=== PATIENT | male | born 1945 | race Caucasian/White ===

== ENCOUNTER 2016-05-10 18:33 | Inpatient (IN) | payer MEDICARE, OTHER ==
[~2016-05-10] VITALS: Ht 180.3 cm; Wt 70.4 kg
[~2016-05-10 18:33] MED LIST: ATOR10TA60 PO; DIVA250T PO; DONE10TA34 PO; DULO30CA2 PO; IBUP-1027 PO; LISI10TA2 PO; LORA1TAB PO; MELA3TAB PO; MEMA10TA PO; OMERPRAZOLE PO; QUET50TA5 PO; TRAZ50TA15 PO
--- NOTE | 2016-05-10 19:42 | PHYS DOC ---
Past Medical History Past Medical History: Anxiety, Dementia, Depression, High Cholesterol, Hypertension Additional Past Medical Histor: Lewy body dementia, PARKINSONS Past Surgical History: Other Additional Past Surgical Histo: L. FOOT Alcohol Use: Rarely Drug Use: None Adult General Chief Complaint Chief Complaint: SYNCOPE HPI HPI Patient is a 70 year old female who presents after apparent syncopal episode. Patient was at the [facility] when he vomited and then lost consciousness. He shortly thereafter regained consciousness. Patient reports he is feeling fine now. He is demented, however his is at bedside says he is acting his baseline. No other acute complaints. Review of Systems Review of Systems Constitutional: Syncope. Denies fever or chills Eyes: Denies change in visual acuity or eye pain HENT: Denies nasal congestion or sore throat Respiratory: Denies cough or shortness of breath Cardiovascular: Denies chest pain GI: Emesis at [facility]. Denies abdominal pain, nausea,bloody stools or diarrhea : Denies dysuria or hematuria Musculoskeletal: Denies back pain or joint pain Integument: Denies rash or skin lesions Neurologic: Denies headache, focal weakness or sensory changes Current Medications Current Medications Current Medications Medications (Trade) Dose Ordered Sig/Latosha Start Time Stop Time Status Last Admin Dose Admin Ondansetron HCl (Zofran) 4 mg 1X ONCE 05/10/16 19:45 05/10/16 19:46 DC 05/10/16 20:13 4 MG Sodium Chloride (Iv Sodium Chloride 0.9% 1000ml Bag) 1,000 ml @ 1,000 mls/hr 1X ONCE 05/10/16 19:45 05/10/16 20:44 DC 05/10/16 20:12 1,000 MLS/HR Allergies Allergies Allergies Coded Allergies Type Severity Reaction Last Updated Verified No Known Drug Allergies 01/14/16 No Physical Exam Physical Exam Constitutional: Well developed, well nourished, no acute distress, non-toxic appearance HENT: Normocephalic, atraumatic, bilateral external ears normal Eyes: PERRL, EOMI, conjunctiva normal, no discharge Neck: Normal range of motion, no stridor Cardiovascular: Heart rate normal, regular rhythm, no murmur Lungs & Thorax: Coarse breath sounds on R Abdomen: Bowel sounds normal, soft, non-distended, no TTP Skin: Warm, dry, no erythema, no rash Extremities: No obvious deformity, no edema Neurologic: Alert and oriented to person and place, stuttering, no gross deficits noted Current Patient Data Vital Signs Vital Signs Date Time Temp Pulse Resp B/P Pulse Ox O2 Delivery O2 Flow Rate FiO2 05/10/16 20:30 72 20 103/60 99 Room Air 05/10/16 18:33 97.3 97.3 Lab Values Laboratory Tests Test 05/10/16 18:50 05/10/16 20:30 White Blood Count 8.0x10^3/uL (4.0-11.0) Red Blood Count 4.59x10^6/uL (4.30-5.70) Hemoglobin 14.7g/dL (13.0-17.5) Hematocrit 45.1% (39.0-53.0) Mean Corpuscular Volume 98fL (79-100) Mean Corpuscular Hemoglobin 32pg (25-35) Mean Corpuscular Hemoglobin Concent 33g/dL (31-37) Red Cell Distribution Width 13.5% (11.5-14.5) Platelet Count 258x10^3/uL (140-400) Neutrophils (%) (Auto) 47% (31-73) Lymphocytes (%) (Auto) 44% (24-48) Monocytes (%) (Auto) 7% (0-9) Eosinophils (%) (Auto) 1% (0-3) Basophils (%) (Auto) 1% (0-3) Neutrophils # (Auto) 3.8x10^3uL (1.8-7.7) Lymphocytes # (Auto) 3.5x10^3/uL (1.0-4.8) Monocytes # (Auto) 0.6x10^3/uL (0.0-1.1) Eosinophils # (Auto) 0.1x10^3/uL (0.0-0.7) Basophils # (Auto) 0.1x10^3/uL (0.0-0.2) Sodium Level 146mmol/L (136-145) H Potassium Level 4.0mmol/L (3.5-5.1) Chloride Level 108mmol/L (98-107) H Carbon Dioxide Level 25mmol/L (21-32) Anion Gap 13 (6-14) Blood Urea Nitrogen 35mg/dL (8-26) H Creatinine 1.4mg/dL (0.7-1.3) H Estimated GFR (Cockcroft-Gault) 50.2 BUN/Creatinine Ratio 25 (6-20) H Glucose Level 123mg/dL (70-99) H Calcium Level 9.2mg/dL (8.5-10.1) Total Bilirubin 0.9mg/dL (0.2-1.0) Aspartate Amino Transferase (AST) 23U/L (15-37) Alanine Aminotransferase (ALT) 30U/L (16-63) Alkaline Phosphatase 44U/L (46-116) L Troponin I Quantitative < 0.017ng/mL (0.000-0.055) Total Protein 7.0g/dL (6.4-8.2) Albumin 3.5g/dL (3.4-5.0) Albumin/Globulin Ratio 1.0 (1.0-1.7) Lipase 270U/L (73-393) Urine Collection Type Unknown Urine Color Maureen Urine Clarity Clear Urine pH 7.0 Urine Specific [place] 1.015 Urine Protein Negativemg/dL (NEG-TRACE) Urine Glucose (UA) Negativemg/dL (NEG) Urine Ketones (Stick) 15mg/dL (NEG) Urine Blood Negative (NEG) Urine Nitrite Negative (NEG) Urine Bilirubin Small (NEG) Urine Urobilinogen Dipstick 4.0mg/dL (0.2 mg/dL) Urine Leukocyte Esterase Negative (NEG) Urine RBC Occ/HPF (0-2) Urine WBC 5-10/HPF (0-4) Urine Squamous Epithelial Cells Few/LPF Urine Bacteria 0/HPF (0-FEW) Urine Hyaline Casts Few/HPF Urine Mucus Slight/LPF Laboratory Tests 05/10/16 18:50 Laboratory Tests 05/10/16 18:50 EKG EKG EKG (my read): sinus rhythm, rate 69, normal axis, QTc 484ms, no acute ischemic changes Radiology/Procedures Radiology/Procedures CXR (my read): No acute abnormality Course & Med Decision Making Course & Med Decision Making Pertinent Labs and Imaging studies reviewed. (See chart for details) Patient is 70 -year-old male who presents after apparent syncopal episode. Unclear etiology. No concerning findings on physical exam. Will obtain EKG, chest x-ray, labs to evaluate. Fluid bolus ordered. Labs notable for a few electrolyte abnormalities. Discussed results with patient and . Discussed with Dr. James, will admit under his care for further evaluation and treatment. Dragon Disclaimer Dragon Disclaimer This electronic medical record was generated, in whole or in part, using a voice recognition dictation system. Departure Departure Impression: Primary Impression: Syncope Disposition: 09 ADMITTED INPATIENT Admitting Physician: Catrina James Condition: GUARDED Referrals: FROILAN CASTILLO MD (PCP) CHRISTA MENDES MD May 10, 2016 19:42
[2016-05-10] MEDS ORDERED: IV NORMAL SALINE 1000ML BAG 1,000 ML IV ONE (19:45)
[2016-05-10] MEDS ORDERED: ONDANSETRON PF 4 MG/2 ML VIAL. IV ONE (19:45)
[2016-05-10 19:52] LABS: BASO # 0.1 x10^3/uL (0.0-0.2); BASO % 1 % (0-3); EOS % 1 % (0-3); HEMATOCRIT 45.1 % (39.0-53.0); HEMOGLOBIN 14.7 g/dL (13.0-17.5); LYMPH # 3.5 x10^3/uL (1.0-4.8); LYMPH % 44 % (24-48); MEAN CORPUSCULAR HEMOGLOBIN 32 pg (25-35); MEAN CORPUSCULAR HGB CONC 33 g/dL (31-37); MEAN CORPUSCULAR VOLUME 98 fL (79-100); MONO % 7 % (0-9); NEUT % 47 % (31-73); PLATELET COUNT 258 x10^3/uL (140-400); RED BLOOD COUNT 4.59 x10^6/uL (4.30-5.70); RED CELL DISTRIBUTION WIDTH 13.5 % (11.5-14.5)
--- NOTE | 2016-05-10 19:54 | EKG ---
[facility] [address] [place] [address] Test Date: 2016-05-10 Test Time: 19:52:29 Pat Name: EFRAÍN ORTIZ Department: Room: Gender: M Entry Specialist: MA : [id number] Requested By: CHRISTA MENDES Order Number: [id number] Reading MD: Speedy Skinner Measurements Intervals [place] Rate: 69 P: 27 OK: 188 QRS: 70 QRSD: 86 T: 65 QT: 450 QTc: 484 Interpretive Statements SINUS RHYTHM NON-SPECIFIC ST/T CHANGES PROLONGED QT Electronically Signed On 05-16-2016 10:02:30 EYEGLASS LENS GENERATOR by Speedy Skinner
[2016-05-10 19:59] LABS: CALCIUM 9.2 mg/dL (8.5-10.1); CREATININE 1.4 mg/dL (0.7-1.3); GFR 50.2
[2016-05-10 20:05] LABS: ALBUMIN 3.5 g/dL (3.4-5.0); TOTAL BILIRUBIN 0.9 mg/dL (0.2-1.0)
[2016-05-10 20:43] LABS: BILIRUBIN,URINE SMALL (NEG); GLUCOSE,URINE NEGATIVE (NEG); NITRITE,URINE NEGATIVE (NEG)
[2016-05-10 20:48] LABS: PROTEIN,URINE NEGATIVE (NEG-TRACE)
[2016-05-10 20:49] LABS: BACTERIA,URINE 0 /HPF (0-FEW); RBC,URINE OCC /HPF (0-2); SQUAMOUS EPITHELIAL CELL,UR FEW /LPF
[2016-05-10] MEDS ORDERED: ONDANSETRON PF 4 MG/2 ML VIAL. IV PRN (21:00)
[2016-05-10] MEDS ORDERED: ACETAMINOPHEN 325 MG TABLET. PO PRN (21:00)
[2016-05-10] MEDS ORDERED: MORPHINE SULFATE 2 MG/ML DISP.SYRIN. IV PRN (21:00)
--- NOTE | 2016-05-10 21:36 | PDOC1 ---
History and Physical Date of Admission Date of Admission DATE: 05/10/16 TIME: 21:35 Identification/Chief Complaint Chief Complaint syncope, poorly responsive for a short time Source Source: Caregiver, Chart review History of Present Illness History of Present Illness Patient in correction for dementia. Reported likely Lewy Body dementia. TOnight at dinner, he was suddenly lethargic and poorly responsive, and unable to be aroused. In the ER, he is responsive and trying to communicate but has marked word finding difficulty and slow to respond. Past Medical History CENTRAL NERVOUS SYSTEM: Dementia, Other (parkinsons) Psych: Depression Past Surgical History Past Surgical History: No pertinent history Family History Family History: Family History Unknown Social History Smoke: No ALCOHOL: none Current Problem List Problem List Problems Medical Problems: (1) Syncope Status: Acute Problems: Current Medications Current Medications Current Medications Sodium Chloride (Iv Sodium Chloride 0.9% 1000ml Bag) 1,000 ml @ 1,000 mls/hr 1X ONCE IV Last administered on 05/10/16 20:12; Start 05/10/16 at 19:45; Stop 05/10/16 at 20:44; Status DC Ondansetron HCl (Zofran) 4 mg 1X ONCE IV Last administered on 05/10/16 20:13 ; Start 05/10/16 at 19:45; Stop 05/10/16 at 19:46; Status DC Ondansetron HCl (Zofran) 4 mg PRN Q8HRS PRN IV NAUSEA/VOMITING; Start 05/10/16 at 21:00; Stop 05/11/16 at 20:59 Morphine Sulfate 2 mg PRN Q2HR PRN IV PAIN; Start 05/10/16 at 21:00; Stop 05/11 at 20:59 Acetaminophen (Tylenol) 650 mg PRN Q4HRS PRN PO FEVER; Start 05/10/16 at 21:00 ; Stop 05/11/16 at 20:59 Active Scripts Active Reported Lorazepam 1 Mg Tablet 1 Mg PO DAILY Lisinopril 10 Mg Tablet 1 Tab PO DAILY Namenda (Memantine Hcl) 10 Mg Tablet 10 Mg PO DAILY Atorvastatin Calcium 10 Mg Tablet 10 Mg PO HS Aricept (Donepezil Hcl) 10 Mg Tablet 2.5 Tab PO QHS Trazodone Hcl 50 Mg Tablet 1.5 Tab PO QHS Melatonin 3 Mg Tablet 1 Tab PO QHS Depakote Er (Divalproex Sodium) 250 Mg Tab.er.24h 0.5 Tab PO BID Cymbalta (Duloxetine Hcl) 30 Mg Capsule. 1 Cap PO HS [omerprazole] 20 Mg PO PRN Allergies Allergies: Coded Allergies: No Known Drug Allergies (Unverified , 01/14/16) ROS Review of System unable to complete, demented, hard for him to answer questions Physical Exam General: Alert, Cooperative, No acute distress, Other (not oriented, difficulty with speech, ) HEENT: PERRLA, EOMI, Mucous membr. moist/pink Lungs: Clear to auscultation, Normal air movement Abdomen: Normal bowel sounds, Soft Extremities: No clubbing, No edema Neuro: Normal speech, Normal tone, Sensation intact, Cranial nerves 3-12 NL, Other (good hand str. ) Psych/Mental Status: Other (flat, ) Vitals Vitals Vital Signs Date Time Temp Pulse Resp B/P Pulse Ox O2 Delivery O2 Flow Rate FiO2 05/10/16 20:30 72 20 103/60 99 Room Air 05/10/16 18:33 97.3 97.3 Labs Labs Laboratory Tests Test 05/10/16 18:50 05/10/16 20:30 White Blood Count 8.0x10^3/uL (4.0-11.0) Red Blood Count 4.59x10^6/uL (4.30-5.70) Hemoglobin 14.7g/dL (13.0-17.5) Hematocrit 45.1% (39.0-53.0) Mean Corpuscular Volume 98fL (79-100) Mean Corpuscular Hemoglobin 32pg (25-35) Mean Corpuscular Hemoglobin Concent 33g/dL (31-37) Red Cell Distribution Width 13.5% (11.5-14.5) Platelet Count 258x10^3/uL (140-400) Neutrophils (%) (Auto) 47% (31-73) Lymphocytes (%) (Auto) 44% (24-48) Monocytes (%) (Auto) 7% (0-9) Eosinophils (%) (Auto) 1% (0-3) Basophils (%) (Auto) 1% (0-3) Neutrophils # (Auto) 3.8x10^3uL (1.8-7.7) Lymphocytes # (Auto) 3.5x10^3/uL (1.0-4.8) Monocytes # (Auto) 0.6x10^3/uL (0.0-1.1) Eosinophils # (Auto) 0.1x10^3/uL (0.0-0.7) Basophils # (Auto) 0.1x10^3/uL (0.0-0.2) Sodium Level 146mmol/L (136-145) Potassium Level 4.0mmol/L (3.5-5.1) Chloride Level 108mmol/L (98-107) Carbon Dioxide Level 25mmol/L (21-32) Anion Gap 13 (6-14) Blood Urea Nitrogen 35mg/dL (8-26) Creatinine 1.4mg/dL (0.7-1.3) Estimated GFR (Cockcroft-Gault) 50.2 BUN/Creatinine Ratio 25 (6-20) Glucose Level 123mg/dL (70-99) Calcium Level 9.2mg/dL (8.5-10.1) Total Bilirubin 0.9mg/dL (0.2-1.0) Aspartate Amino Transf (AST/SGOT) 23U/L (15-37) Alanine Aminotransferase (ALT/SGPT) 30U/L (16-63) Alkaline Phosphatase 44U/L (46-116) Troponin I Quantitative < 0.017ng/mL (0.000-0.055) Total Protein 7.0g/dL (6.4-8.2) Albumin 3.5g/dL (3.4-5.0) Albumin/Globulin Ratio 1.0 (1.0-1.7) Lipase 270U/L (73-393) Urine Collection Type Unknown Urine Color Maureen Urine Clarity Clear Urine pH 7.0 Urine Specific [place] 1.015 Urine Protein Negativemg/dL (NEG-TRACE) Urine Glucose (UA) Negativemg/dL (NEG) Urine Ketones (Stick) 15mg/dL (NEG) Urine Blood Negative (NEG) Urine Nitrite Negative (NEG) Urine Bilirubin Small (NEG) Urine Urobilinogen Dipstick 4.0mg/dL (0.2 mg/dL) Urine Leukocyte Esterase Negative (NEG) Urine RBC Occ/HPF (0-2) Urine WBC 5-10/HPF (0-4) Urine Squamous Epithelial Cells Few/LPF Urine Bacteria 0/HPF (0-FEW) Urine Hyaline Casts Few/HPF Urine Mucus Slight/LPF Laboratory Tests Test 05/10/16 18:50 05/10/16 20:30 White Blood Count 8.0x10^3/uL (4.0-11.0) Red Blood Count 4.59x10^6/uL (4.30-5.70) Hemoglobin 14.7g/dL (13.0-17.5) Hematocrit 45.1% (39.0-53.0) Mean Corpuscular Volume 98fL (79-100) Mean Corpuscular Hemoglobin 32pg (25-35) Mean Corpuscular Hemoglobin Concent 33g/dL (31-37) Red Cell Distribution Width 13.5% (11.5-14.5) Platelet Count 258x10^3/uL (140-400) Neutrophils (%) (Auto) 47% (31-73) Lymphocytes (%) (Auto) 44% (24-48) Monocytes (%) (Auto) 7% (0-9) Eosinophils (%) (Auto) 1% (0-3) Basophils (%) (Auto) 1% (0-3) Neutrophils # (Auto) 3.8x10^3uL (1.8-7.7) Lymphocytes # (Auto) 3.5x10^3/uL (1.0-4.8) Monocytes # (Auto) 0.6x10^3/uL (0.0-1.1) Eosinophils # (Auto) 0.1x10^3/uL (0.0-0.7) Basophils # (Auto) 0.1x10^3/uL (0.0-0.2) Sodium Level 146mmol/L (136-145) Potassium Level 4.0mmol/L (3.5-5.1) Chloride Level 108mmol/L (98-107) Carbon Dioxide Level 25mmol/L (21-32) Anion Gap 13 (6-14) Blood Urea Nitrogen 35mg/dL (8-26) Creatinine 1.4mg/dL (0.7-1.3) Estimated GFR (Cockcroft-Gault) 50.2 BUN/Creatinine Ratio 25 (6-20) Glucose Level 123mg/dL (70-99) Calcium Level 9.2mg/dL (8.5-10.1) Total Bilirubin 0.9mg/dL (0.2-1.0) Aspartate Amino Transf (AST/SGOT) 23U/L (15-37) Alanine Aminotransferase (ALT/SGPT) 30U/L (16-63) Alkaline Phosphatase 44U/L (46-116) Troponin I Quantitative < 0.017ng/mL (0.000-0.055) Total Protein 7.0g/dL (6.4-8.2) Albumin 3.5g/dL (3.4-5.0) Albumin/Globulin Ratio 1.0 (1.0-1.7) Lipase 270U/L (73-393) Urine Collection Type Unknown Urine Color Maureen Urine Clarity Clear Urine pH 7.0 Urine Specific [place] 1.015 Urine Protein Negativemg/dL (NEG-TRACE) Urine Glucose (UA) Negativemg/dL (NEG) Urine Ketones (Stick) 15mg/dL (NEG) Urine Blood Negative (NEG) Urine Nitrite Negative (NEG) Urine Bilirubin Small (NEG) Urine Urobilinogen Dipstick 4.0mg/dL (0.2 mg/dL) Urine Leukocyte Esterase Negative (NEG) Urine RBC Occ/HPF (0-2) Urine WBC 5-10/HPF (0-4) Urine Squamous Epithelial Cells Few/LPF Urine Bacteria 0/HPF (0-FEW) Urine Hyaline Casts Few/HPF Urine Mucus Slight/LPF VTE Prophylaxis Ordered VTE Prophylaxis Devices: No VTE Pharmacological Prophylaxi: Yes Assessment/Plan Assessment/Plan syncope dementia Hx of likely Lewy Body dementia depression, possible seizure admit ALLYSON KASPER MD May 10, 2016 21:36
[2016-05-10] MEDS: traZODone 50 MG TABLET. PO SCH (22:48)
[2016-05-10] MEDS: DONEPEZIL HCL 10 MG TABLET. PO SCH (22:48)
[2016-05-10] MEDS: DIVALPROEX EXTENDED RELEASE 250 MG TAB.ER.24H. PO SCH (22:48)
[2016-05-10] MEDS: DULOXETINE HCL 30 MG CAPSULE.DR. PO SCH (22:48)
[2016-05-10] MEDS: ATORVASTATIN CALCIUM 10 MG TABLET. PO SCH (22:48)
[2016-05-10 23:00] VITALS: BP 125/85
[2016-05-11 03:00] VITALS: BP 116/50
[2016-05-11 06:31] LABS: BASO % 0 % (0-3); EOS % 2 % (0-3); HEMATOCRIT 40.9 % (39.0-53.0); HEMOGLOBIN 13.8 g/dL (13.0-17.5); LYMPH # 1.5 x10^3/uL (1.0-4.8); LYMPH % 12 % (24-48); MEAN CORPUSCULAR HEMOGLOBIN 33 pg (25-35); MEAN CORPUSCULAR HGB CONC 34 g/dL (31-37); MEAN CORPUSCULAR VOLUME 98 fL (79-100); MONO % 9 % (0-9); NEUT % 77 % (31-73); PLATELET COUNT 204 x10^3/uL (140-400); RED BLOOD COUNT 4.16 x10^6/uL (4.30-5.70); RED CELL DISTRIBUTION WIDTH 13.6 % (11.5-14.5); WHITE BLOOD COUNT 12.2 x10^3/uL (4.0-11.0)
[2016-05-11 06:54] LABS: CALCIUM 8.3 mg/dL (8.5-10.1); CREATININE 1.3 mg/dL (0.7-1.3); GFR 54.7; POTASSIUM 3.7 mmol/L (3.5-5.1)
[2016-05-11 07:00] VITALS: BP 139/92
--- NOTE | 2016-05-11 07:18 | RAD ---
EXAM: Chest, 2 views. HISTORY: Syncope. COMPARISON: 04/16/2016. FINDINGS: Frontal and lateral views of the chest are obtained. There is no infiltrate, effusion or pneumothorax. The heart is normal in size. There is hyperinflation due to inspiratory effort or emphysema. Incidental note is made of degenerative or remote posttraumatic changes involving both glenoid fossae. IMPRESSION: No acute pulmonary finding.
[2016-05-11] MEDS: LORAZEPAM 1 MG TABLET. PO SCH (08:59)
[2016-05-11] MEDS: MEMANTINE 10 MG TABLET. PO SCH (08:59)
[2016-05-11] MEDS: DIVALPROEX EXTENDED RELEASE 250 MG TAB.ER.24H. PO SCH ×2 (08:59→21:11)
[2016-05-11] MEDS: LISINOPRIL 10 MG TABLET PO SCH (09:00)
--- NOTE | 2016-05-11 12:29 | PDOC2 ---
CONSULT Date of Consult Date of Consult DATE: 05/11/16 TIME: 12:26 Reason for Consult Reason for Consult: Syncope Referring Physician Referring Physician: Jacob Identification/Chief Complaint Chief Complaint Syncope History of Present Illness Reason for Visit: Patient is a 70 year old white male with history of lewy body dementia. Admitted from ED after syncopal episode. Pt A&O x 1 and was a poor historian. at bedside. Per his report, denies any history of cardiac problems. Per , has had 4 prior similar episodes. She states that he lives in a memory care clinic and if his blood pressure gets too low, they will hold his blood pressure medication. Past Medical History Cardiovascular: HTN, Syncope CENTRAL NERVOUS SYSTEM: Dementia (Lewy Body), Other (parkinsons) Psych: Depression Past Surgical History Past Surgical History: No pertinent history Family History Family History: Family History Unknown Social History No ALCOHOL: none Current Problem List Problem List Problems Medical Problems: (1) Syncope Status: Acute Current Medications Current Medications Current Medications Sodium Chloride (Iv Sodium Chloride 0.9% 1000ml Bag) 1,000 ml @ 1,000 mls/hr 1X ONCE IV Last administered on 05/10/16 20:12; Start 05/10/16 at 19:45; Stop 05/10/16 at 20:44; Status DC Ondansetron HCl (Zofran) 4 mg 1X ONCE IV Last administered on 05/10/16 20:13 ; Start 05/10/16 at 19:45; Stop 05/10/16 at 19:46; Status DC Ondansetron HCl (Zofran) 4 mg PRN Q8HRS PRN IV NAUSEA/VOMITING; Start 05/10/16 at 21:00; Stop 05/11/16 at 20:59 Morphine Sulfate 2 mg PRN Q2HR PRN IV PAIN; Start 05/10/16 at 21:00; Stop 05/11 at 20:59 Acetaminophen (Tylenol) 650 mg PRN Q4HRS PRN PO FEVER; Start 05/10/16 at 21:00 ; Stop 05/11/16 at 20:59 Atorvastatin Calcium (Lipitor) 10 mg HS PO Last administered on 05/10/16 22:48 ; Start 05/10/16 at 22:00 Divalproex Sodium (Depakote Er) 250 mg BID PO Last administered on 05/11/16 08 :59; Start 05/10/16 at 22:00 Donepezil HCl (Aricept) 10 mg QHS PO Last administered on 05/10/16 22:48; Start 05/10/16 at 22:00 Duloxetine HCl (Cymbalta) 30 mg HS PO Last administered on 05/10/16 22:48; Start 05/10/16 at 22:00 Lisinopril (Prinivil) 10 mg DAILY PO Last administered on 05/11/16 09:00; Start 05/11/16 at 09:00 Lorazepam (Ativan) 1 mg DAILY PO Last administered on 05/11/16 08:59; Start at 09:00 Memantine (Namenda) 10 mg DAILY PO Last administered on 05/11/16 08:59; Start 05/11/16 at 09:00 Trazodone HCl (Desyrel) 50 mg QHS PO Last administered on 05/10/16 22:48; Start 05/10/16 at 22:00 Non-Formulary Medication 1 tab QHS PO ; Start 05/11/16 at 21:00; Status UNV Active Scripts Active Reported Lorazepam 1 Mg Tablet 1 Mg PO DAILY Lisinopril 10 Mg Tablet 1 Tab PO DAILY Namenda (Memantine Hcl) 10 Mg Tablet 10 Mg PO DAILY Atorvastatin Calcium 10 Mg Tablet 10 Mg PO HS Aricept (Donepezil Hcl) 10 Mg Tablet 2.5 Tab PO QHS Trazodone Hcl 50 Mg Tablet 1.5 Tab PO QHS Melatonin 3 Mg Tablet 1 Tab PO QHS Depakote Er (Divalproex Sodium) 250 Mg Tab.er.24h 0.5 Tab PO BID Cymbalta (Duloxetine Hcl) 30 Mg Capsule. 1 Cap PO HS [omerprazole] 20 Mg PO PRN Allergies Allergies: Coded Allergies: No Known Drug Allergies (Unverified , 01/14/16) Physical Exam General: Other (A&O x self only) Lungs: Clear to auscultation, Normal air movement Heart: Regular rate, Normal S1, Normal S2, No murmurs Abdomen: Normal bowel sounds, Soft, No tenderness, No hepatosplenomegaly, No masses Psych/Mental Status: Other (tearful) Vitals VITALS Vital Signs Date Time Temp Pulse Resp B/P Pulse Ox O2 Delivery O2 Flow Rate FiO2 05/11/16 09:00 79 139/92 05/11/16 08:00 Room Air 05/11/16 07:00 96.4 20 97 96.4 Labs Labs Laboratory Tests Test 05/10/16 18:50 05/10/16 20:30 05/11/16 05:15 White Blood Count 8.0x10^3/uL (4.0-11.0) 12.2x10^3/uL (4.0-11.0) Red Blood Count 4.59x10^6/uL (4.30-5.70) 4.16x10^6/uL (4.30-5.70) Hemoglobin 14.7g/dL (13.0-17.5) 13.8g/dL (13.0-17.5) Hematocrit 45.1% (39.0-53.0) 40.9% (39.0-53.0) Mean Corpuscular Volume 98fL (79-100) 98fL (79-100) Mean Corpuscular Hemoglobin 32pg (25-35) 33pg (25-35) Mean Corpuscular Hemoglobin Concent 33g/dL (31-37) 34g/dL (31-37) Red Cell Distribution Width 13.5% (11.5-14.5) 13.6% (11.5-14.5) Platelet Count 258x10^3/uL (140-400) 204x10^3/uL (140-400) Neutrophils (%) (Auto) 47% (31-73) 77% (31-73) Lymphocytes (%) (Auto) 44% (24-48) 12% (24-48) Monocytes (%) (Auto) 7% (0-9) 9% (0-9) Eosinophils (%) (Auto) 1% (0-3) 2% (0-3) Basophils (%) (Auto) 1% (0-3) 0% (0-3) Neutrophils # (Auto) 3.8x10^3uL (1.8-7.7) 9.4x10^3uL (1.8-7.7) Lymphocytes # (Auto) 3.5x10^3/uL (1.0-4.8) 1.5x10^3/uL (1.0-4.8) Monocytes # (Auto) 0.6x10^3/uL (0.0-1.1) 1.0x10^3/uL (0.0-1.1) Eosinophils # (Auto) 0.1x10^3/uL (0.0-0.7) 0.2x10^3/uL (0.0-0.7) Basophils # (Auto) 0.1x10^3/uL (0.0-0.2) 0.0x10^3/uL (0.0-0.2) Sodium Level 146mmol/L (136-145) 142mmol/L (136-145) Potassium Level 4.0mmol/L (3.5-5.1) 3.7mmol/L (3.5-5.1) Chloride Level 108mmol/L (98-107) 109mmol/L (98-107) Carbon Dioxide Level 25mmol/L (21-32) 28mmol/L (21-32) Anion Gap 13 (6-14) 5 (6-14) Blood Urea Nitrogen 35mg/dL (8-26) 30mg/dL (8-26) Creatinine 1.4mg/dL (0.7-1.3) 1.3mg/dL (0.7-1.3) Estimated GFR (Cockcroft-Gault) 50.2 54.7 BUN/Creatinine Ratio 25 (6-20) Glucose Level 123mg/dL (70-99) 86mg/dL (70-99) Calcium Level 9.2mg/dL (8.5-10.1) 8.3mg/dL (8.5-10.1) Total Bilirubin 0.9mg/dL (0.2-1.0) Aspartate Amino Transf (AST/SGOT) 23U/L (15-37) Alanine Aminotransferase (ALT/SGPT) 30U/L (16-63) Alkaline Phosphatase 44U/L (46-116) Troponin I Quantitative < 0.017ng/mL (0.000-0.055) Total Protein 7.0g/dL (6.4-8.2) Albumin 3.5g/dL (3.4-5.0) Albumin/Globulin Ratio 1.0 (1.0-1.7) Lipase 270U/L (73-393) Urine Collection Type Unknown Urine Color Maureen Urine Clarity Clear Urine pH 7.0 Urine Specific [place] 1.015 Urine Protein Negativemg/dL (NEG-TRACE) Urine Glucose (UA) Negativemg/dL (NEG) Urine Ketones (Stick) 15mg/dL (NEG) Urine Blood Negative (NEG) Urine Nitrite Negative (NEG) Urine Bilirubin Small (NEG) Urine Urobilinogen Dipstick 4.0mg/dL (0.2 mg/dL) Urine Leukocyte Esterase Negative (NEG) Urine RBC Occ/HPF (0-2) Urine WBC 5-10/HPF (0-4) Urine Squamous Epithelial Cells Few/LPF Urine Bacteria 0/HPF (0-FEW) Urine Hyaline Casts Few/HPF Urine Mucus Slight/LPF Laboratory Tests Test 05/10/16 18:50 05/10/16 20:30 05/11/16 05:15 White Blood Count 8.0x10^3/uL (4.0-11.0) 12.2x10^3/uL (4.0-11.0) Red Blood Count 4.59x10^6/uL (4.30-5.70) 4.16x10^6/uL (4.30-5.70) Hemoglobin 14.7g/dL (13.0-17.5) 13.8g/dL (13.0-17.5) Hematocrit 45.1% (39.0-53.0) 40.9% (39.0-53.0) Mean Corpuscular Volume 98fL (79-100) 98fL (79-100) Mean Corpuscular Hemoglobin 32pg (25-35) 33pg (25-35) Mean Corpuscular Hemoglobin Concent 33g/dL (31-37) 34g/dL (31-37) Red Cell Distribution Width 13.5% (11.5-14.5) 13.6% (11.5-14.5) Platelet Count 258x10^3/uL (140-400) 204x10^3/uL (140-400) Neutrophils (%) (Auto) 47% (31-73) 77% (31-73) Lymphocytes (%) (Auto) 44% (24-48) 12% (24-48) Monocytes (%) (Auto) 7% (0-9) 9% (0-9) Eosinophils (%) (Auto) 1% (0-3) 2% (0-3) Basophils (%) (Auto) 1% (0-3) 0% (0-3) Neutrophils # (Auto) 3.8x10^3uL (1.8-7.7) 9.4x10^3uL (1.8-7.7) Lymphocytes # (Auto) 3.5x10^3/uL (1.0-4.8) 1.5x10^3/uL (1.0-4.8) Monocytes # (Auto) 0.6x10^3/uL (0.0-1.1) 1.0x10^3/uL (0.0-1.1) Eosinophils # (Auto) 0.1x10^3/uL (0.0-0.7) 0.2x10^3/uL (0.0-0.7) Basophils # (Auto) 0.1x10^3/uL (0.0-0.2) 0.0x10^3/uL (0.0-0.2) Sodium Level 146mmol/L (136-145) 142mmol/L (136-145) Potassium Level 4.0mmol/L (3.5-5.1) 3.7mmol/L (3.5-5.1) Chloride Level 108mmol/L (98-107) 109mmol/L (98-107) Carbon Dioxide Level 25mmol/L (21-32) 28mmol/L (21-32) Anion Gap 13 (6-14) 5 (6-14) Blood Urea Nitrogen 35mg/dL (8-26) 30mg/dL (8-26) Creatinine 1.4mg/dL (0.7-1.3) 1.3mg/dL (0.7-1.3) Estimated GFR (Cockcroft-Gault) 50.2 54.7 BUN/Creatinine Ratio 25 (6-20) Glucose Level 123mg/dL (70-99) 86mg/dL (70-99) Calcium Level 9.2mg/dL (8.5-10.1) 8.3mg/dL (8.5-10.1) Total Bilirubin 0.9mg/dL (0.2-1.0) Aspartate Amino Transf (AST/SGOT) 23U/L (15-37) Alanine Aminotransferase (ALT/SGPT) 30U/L (16-63) Alkaline Phosphatase 44U/L (46-116) Troponin I Quantitative < 0.017ng/mL (0.000-0.055) Total Protein 7.0g/dL (6.4-8.2) Albumin 3.5g/dL (3.4-5.0) Albumin/Globulin Ratio 1.0 (1.0-1.7) Lipase 270U/L (73-393) Urine Collection Type Unknown Urine Color Maureen Urine Clarity Clear Urine pH 7.0 Urine Specific [place] 1.015 Urine Protein Negativemg/dL (NEG-TRACE) Urine Glucose (UA) Negativemg/dL (NEG) Urine Ketones (Stick) 15mg/dL (NEG) Urine Blood Negative (NEG) Urine Nitrite Negative (NEG) Urine Bilirubin Small (NEG) Urine Urobilinogen Dipstick 4.0mg/dL (0.2 mg/dL) Urine Leukocyte Esterase Negative (NEG) Urine RBC Occ/HPF (0-2) Urine WBC 5-10/HPF (0-4) Urine Squamous Epithelial Cells Few/LPF Urine Bacteria 0/HPF (0-FEW) Urine Hyaline Casts Few/HPF Urine Mucus Slight/LPF Assessment/Plan Assessment/Plan Syncope in a patient with dementia. Will obtain an echo and cardiac tilt table test to evaluate symptoms. Thank you very much for allowing to participate in the care of this patient. KENNA SUERO MD May 11, 2016 12:29
[2016-05-11 15:00] VITALS: BP 146/98
[2016-05-11] MEDS ORDERED: LORAZEPAM 1 MG TABLET. PO ONE (15:15)
--- NOTE | 2016-05-11 15:23 | PDOC2 ---
NEUROLOGY CONSULT Date of Admission Date of Admission DATE: 05/11/16 TIME: 15:14 Reason for Consult Reason for Consult: Syncope, rule out seizure Referring Physician Referring Physician: Dr. James PCP: Dr. Elliott Source Source: Caregiver, Chart review, Patient History of Present Illness History of Present Illness The patient is a 70-year-old right-handed male diagnosed 4 years ago with Lewy body dementia. He has seen Dr. Bentley at . He has been at [facility] for the past several months. He choked on his dinner last night and lost consciousness. There was no convulsive activity, tongue biting, incontinence, or prolonged postictal state. According to his he has never had a significant head injury, stroke, or seizure. He has had trouble with orthostasis in the past, she says. He was just year in March with metabolic encephalopathy, urinary tract infection, hypotension, which resolved with intravenous fluids and antibiotics. His says that he has had approximately 4 episodes of syncope over the past 2 years. These have never been associated with hallmarks of seizures. Past Medical History Cardiovascular: HTN, Hyperlipidemia CENTRAL NERVOUS SYSTEM: Dementia (Lewy body dementia) GI: GERD Psych: Anxiety, Depression Renal/: UTI, Urinary Incontinence Past Surgical History Past Surgical History: No pertinent history Family History Family History: CAD Social History Social History , lives in [facility] [place], no tobacco or alcohol Current Medications Current Medications Current Medications Sodium Chloride (Iv Sodium Chloride 0.9% 1000ml Bag) 1,000 ml @ 1,000 mls/hr 1X ONCE IV Last administered on 05/10/16 20:12; Start 05/10/16 at 19:45; Stop 05/10/16 at 20:44; Status DC Ondansetron HCl (Zofran) 4 mg 1X ONCE IV Last administered on 05/10/16t 20:13 ; Start 05/10/16 at 19:45; Stop 05/10/16 at 19:46; Status DC Ondansetron HCl (Zofran) 4 mg PRN Q8HRS PRN IV NAUSEA/VOMITING; Start 05/10/16 at 21:00; Stop 05/11/16 at 20:59 Morphine Sulfate 2 mg PRN Q2HR PRN IV PAIN; Start 05/10/16 at 21:00; Stop 05/11 at 20:59 Acetaminophen (Tylenol) 650 mg PRN Q4HRS PRN PO FEVER; Start 05/10/16 at 21:00 ; Stop 05/11/16 at 20:59 Atorvastatin Calcium (Lipitor) 10 mg HS PO Last administered on 05/10/16 22:48 ; Start 05/10/16 at 22:00 Divalproex Sodium (Depakote Er) 250 mg BID PO Last administered on 05/11/16 08 :59; Start 05/10/16 at 22:00 Donepezil HCl (Aricept) 10 mg QHS PO Last administered on 05/10/16 22:48; Start 05/10/16 at 22:00 Duloxetine HCl (Cymbalta) 30 mg HS PO Last administered on 05/10/16 22:48; Start 05/10/16 at 22:00 Lisinopril (Prinivil) 10 mg DAILY PO Last administered on 05/11/16 09:00; Start 05/11/16 at 09:00 Lorazepam (Ativan) 1 mg DAILY PO Last administered on 05/11/16 08:59; Start at 09:00 Memantine (Namenda) 10 mg DAILY PO Last administered on 05/11/16 08:59; Start 05/11/16 at 09:00 Trazodone HCl (Desyrel) 50 mg QHS PO Last administered on 05/10/16 22:48; Start 05/10/16 at 22:00 Non-Formulary Medication 1 tab QHS PO ; Start 05/11/16 at 21:00; Status UNV Lorazepam (Ativan) 1 mg 1X ONCE PO ; Start 05/11/16 at 15:15; Stop 05/11/16 at 15:16 Lorazepam (Ativan) 1 mg BID PRN PO ANXIETY / AGITATION; Start 05/11/16 at 15:15 ; Status UNV Active Scripts Active Reported Lorazepam 1 Mg Tablet 1 Mg PO DAILY Lisinopril 10 Mg Tablet 1 Tab PO DAILY Namenda (Memantine Hcl) 10 Mg Tablet 10 Mg PO DAILY Atorvastatin Calcium 10 Mg Tablet 10 Mg PO HS Aricept (Donepezil Hcl) 10 Mg Tablet 2.5 Tab PO QHS Trazodone Hcl 50 Mg Tablet 1.5 Tab PO QHS Melatonin 3 Mg Tablet 1 Tab PO QHS Depakote Er (Divalproex Sodium) 250 Mg Tab.er.24h 0.5 Tab PO BID Cymbalta (Duloxetine Hcl) 30 Mg Capsule. 1 Cap PO HS [omerprazole] 20 Mg PO PRN Allergies Allergies: Coded Allergies: No Known Drug Allergies (Unverified , 01/14/16) ROS Review of System Patient denies fevers, chills, weight loss, dyspnea, angina, abdominal pain, change in bowels, or dysuria. 14 point review of systems is negative. Physical Exam Physical Examination PHYSICAL EXAMINATION: Vital signs: see above. General appearance is normal and in no acute distress. HEENT: Normocephalic and nontraumatic. Eyes, nose, ears, and throat are unremarkable. Neck is supple. No lymphadenopathy. No bruits are heard over the carotid artery. No crepitus. NEUROLOGICAL EXAMINATION: Mental Status Examination: Alert. Oriented only to person. Answers questions and follows commends. Pupils are equal round and reactive to light and accommodation. Extraocular movements are intact. Visual field exam shows no defect on the direct confrontation. No motor or sensory deficits on the facial exam. Uvula in the midline and the soft palate elevated symmetrically. No deviation of the tongue to any direction. Gross hearing is normal. Shoulder shrug normal. Muscle tone is increased, with cogwheel rigidity. No tremor observed. Muscle strength is 5-/5. Deep tendon reflexes are 2+ all around. Plantar reflex is with flexion response bilaterally. Xoexio-yo-mocw test performance is accurate. Alternative movements are accurate. Gait not tested. Sensory exam shows no deficits. No cerebellar signs are elicited. Vitals VITALS Vital Signs Date Time Temp Pulse Resp B/P Pulse Ox O2 Delivery O2 Flow Rate FiO2 05/11/16 09:00 79 139/92 05/11/16 08:00 Room Air 05/11/16 07:00 96.4 20 97 96.4 Labs Labs Laboratory Tests Test 05/10/16 18:50 05/10/16 20:30 05/11/16 05:15 White Blood Count 8.0x10^3/uL (4.0-11.0) 12.2x10^3/uL (4.0-11.0) Red Blood Count 4.59x10^6/uL (4.30-5.70) 4.16x10^6/uL (4.30-5.70) Hemoglobin 14.7g/dL (13.0-17.5) 13.8g/dL (13.0-17.5) Hematocrit 45.1% (39.0-53.0) 40.9% (39.0-53.0) Mean Corpuscular Volume 98fL (79-100) 98fL (79-100) Mean Corpuscular Hemoglobin 32pg (25-35) 33pg (25-35) Mean Corpuscular Hemoglobin Concent 33g/dL (31-37) 34g/dL (31-37) Red Cell Distribution Width 13.5% (11.5-14.5) 13.6% (11.5-14.5) Platelet Count 258x10^3/uL (140-400) 204x10^3/uL (140-400) Neutrophils (%) (Auto) 47% (31-73) 77% (31-73) Lymphocytes (%) (Auto) 44% (24-48) 12% (24-48) Monocytes (%) (Auto) 7% (0-9) 9% (0-9) Eosinophils (%) (Auto) 1% (0-3) 2% (0-3) Basophils (%) (Auto) 1% (0-3) 0% (0-3) Neutrophils # (Auto) 3.8x10^3uL (1.8-7.7) 9.4x10^3uL (1.8-7.7) Lymphocytes # (Auto) 3.5x10^3/uL (1.0-4.8) 1.5x10^3/uL (1.0-4.8) Monocytes # (Auto) 0.6x10^3/uL (0.0-1.1) 1.0x10^3/uL (0.0-1.1) Eosinophils # (Auto) 0.1x10^3/uL (0.0-0.7) 0.2x10^3/uL (0.0-0.7) Basophils # (Auto) 0.1x10^3/uL (0.0-0.2) 0.0x10^3/uL (0.0-0.2) Sodium Level 146mmol/L (136-145) 142mmol/L (136-145) Potassium Level 4.0mmol/L (3.5-5.1) 3.7mmol/L (3.5-5.1) Chloride Level 108mmol/L (98-107) 109mmol/L (98-107) Carbon Dioxide Level 25mmol/L (21-32) 28mmol/L (21-32) Anion Gap 13 (6-14) 5 (6-14) Blood Urea Nitrogen 35mg/dL (8-26) 30mg/dL (8-26) Creatinine 1.4mg/dL (0.7-1.3) 1.3mg/dL (0.7-1.3) Estimated GFR (Cockcroft-Gault) 50.2 54.7 BUN/Creatinine Ratio 25 (6-20) Glucose Level 123mg/dL (70-99) 86mg/dL (70-99) Calcium Level 9.2mg/dL (8.5-10.1) 8.3mg/dL (8.5-10.1) Total Bilirubin 0.9mg/dL (0.2-1.0) Aspartate Amino Transf (AST/SGOT) 23U/L (15-37) Alanine Aminotransferase (ALT/SGPT) 30U/L (16-63) Alkaline Phosphatase 44U/L (46-116) Troponin I Quantitative < 0.017ng/mL (0.000-0.055) Total Protein 7.0g/dL (6.4-8.2) Albumin 3.5g/dL (3.4-5.0) Albumin/Globulin Ratio 1.0 (1.0-1.7) Lipase 270U/L (73-393) Urine Collection Type Unknown Urine Color Maureen Urine Clarity Clear Urine pH 7.0 Urine Specific [place] 1.015 Urine Protein Negativemg/dL (NEG-TRACE) Urine Glucose (UA) Negativemg/dL (NEG) Urine Ketones (Stick) 15mg/dL (NEG) Urine Blood Negative (NEG) Urine Nitrite Negative (NEG) Urine Bilirubin Small (NEG) Urine Urobilinogen Dipstick 4.0mg/dL (0.2 mg/dL) Urine Leukocyte Esterase Negative (NEG) Urine RBC Occ/HPF (0-2) Urine WBC 5-10/HPF (0-4) Urine Squamous Epithelial Cells Few/LPF Urine Bacteria 0/HPF (0-FEW) Urine Hyaline Casts Few/HPF Urine Mucus Slight/LPF Laboratory Tests Test 05/10/16 18:50 05/10/16 20:30 05/11/16 05:15 White Blood Count 8.0x10^3/uL (4.0-11.0) 12.2x10^3/uL (4.0-11.0) Red Blood Count 4.59x10^6/uL (4.30-5.70) 4.16x10^6/uL (4.30-5.70) Hemoglobin 14.7g/dL (13.0-17.5) 13.8g/dL (13.0-17.5) Hematocrit 45.1% (39.0-53.0) 40.9% (39.0-53.0) Mean Corpuscular Volume 98fL (79-100) 98fL (79-100) Mean Corpuscular Hemoglobin 32pg (25-35) 33pg (25-35) Mean Corpuscular Hemoglobin Concent 33g/dL (31-37) 34g/dL (31-37) Red Cell Distribution Width 13.5% (11.5-14.5) 13.6% (11.5-14.5) Platelet Count 258x10^3/uL (140-400) 204x10^3/uL (140-400) Neutrophils (%) (Auto) 47% (31-73) 77% (31-73) Lymphocytes (%) (Auto) 44% (24-48) 12% (24-48) Monocytes (%) (Auto) 7% (0-9) 9% (0-9) Eosinophils (%) (Auto) 1% (0-3) 2% (0-3) Basophils (%) (Auto) 1% (0-3) 0% (0-3) Neutrophils # (Auto) 3.8x10^3uL (1.8-7.7) 9.4x10^3uL (1.8-7.7) Lymphocytes # (Auto) 3.5x10^3/uL (1.0-4.8) 1.5x10^3/uL (1.0-4.8) Monocytes # (Auto) 0.6x10^3/uL (0.0-1.1) 1.0x10^3/uL (0.0-1.1) Eosinophils # (Auto) 0.1x10^3/uL (0.0-0.7) 0.2x10^3/uL (0.0-0.7) Basophils # (Auto) 0.1x10^3/uL (0.0-0.2) 0.0x10^3/uL (0.0-0.2) Sodium Level 146mmol/L (136-145) 142mmol/L (136-145) Potassium Level 4.0mmol/L (3.5-5.1) 3.7mmol/L (3.5-5.1) Chloride Level 108mmol/L (98-107) 109mmol/L (98-107) Carbon Dioxide Level 25mmol/L (21-32) 28mmol/L (21-32) Anion Gap 13 (6-14) 5 (6-14) Blood Urea Nitrogen 35mg/dL (8-26) 30mg/dL (8-26) Creatinine 1.4mg/dL (0.7-1.3) 1.3mg/dL (0.7-1.3) Estimated GFR (Cockcroft-Gault) 50.2 54.7 BUN/Creatinine Ratio 25 (6-20) Glucose Level 123mg/dL (70-99) 86mg/dL (70-99) Calcium Level 9.2mg/dL (8.5-10.1) 8.3mg/dL (8.5-10.1) Total Bilirubin 0.9mg/dL (0.2-1.0) Aspartate Amino Transf (AST/SGOT) 23U/L (15-37) Alanine Aminotransferase (ALT/SGPT) 30U/L (16-63) Alkaline Phosphatase 44U/L (46-116) Troponin I Quantitative < 0.017ng/mL (0.000-0.055) Total Protein 7.0g/dL (6.4-8.2) Albumin 3.5g/dL (3.4-5.0) Albumin/Globulin Ratio 1.0 (1.0-1.7) Lipase 270U/L (73-393) Urine Collection Type Unknown Urine Color Maureen Urine Clarity Clear Urine pH 7.0 Urine Specific [place] 1.015 Urine Protein Negativemg/dL (NEG-TRACE) Urine Glucose (UA) Negativemg/dL (NEG) Urine Ketones (Stick) 15mg/dL (NEG) Urine Blood Negative (NEG) Urine Nitrite Negative (NEG) Urine Bilirubin Small (NEG) Urine Urobilinogen Dipstick 4.0mg/dL (0.2 mg/dL) Urine Leukocyte Esterase Negative (NEG) Urine RBC Occ/HPF (0-2) Urine WBC 5-10/HPF (0-4) Urine Squamous Epithelial Cells Few/LPF Urine Bacteria 0/HPF (0-FEW) Urine Hyaline Casts Few/HPF Urine Mucus Slight/LPF Images Images CT head 04/14/16: No acute intracranial hemorrhage or gross mass effect. - Generalized cerebral volume loss and nonspecific white matter disease likely representing chronic sequelae of small vessel ischemic disease. Assessment/Plan Assessment/Plan Impression: Lewy body dementia with some hallmarks of parkinsonism and according to the nurse typical fluctuating mental status throughout the day. Vasovagal syncope due to choking, by history. No evidence that he had a seizure. However, he has had episodes of syncope for the past few years which are unexplained. Recommendations: Reasonable to check an electroencephalogram No other neurological studies such as repeat brain imaging required I discussed my findings with the patient and his . Thank you for letting me help the patient's care. FABRICIO GOMEZ MD May 11, 2016 15:23
--- NOTE | 2016-05-11 16:09 | PDOC ---
PROGRESS NOTES Chief Complaint Chief Complaint 1. Lewy Body dementia 2. Syncope 3. Mild pCM History of Present Illness History of Present Illness Very labile behavior Was nasty to staff this morning, nice to me this PM was at bedside [facility] has seen - for echo and tilt table and EEG by neuro HAs some xanax as home med Vitals Vitals Vital Signs Date Time Temp Pulse Resp B/P Pulse Ox O2 Delivery O2 Flow Rate FiO2 05/11/16 15:00 98.8 85 20 146/98 98 Room Air 98.8 Physical Exam General: Other (A&O x self only) Heart: Regular rate, Normal S1, Normal S2, No murmurs Lungs: Clear Abdomen: Normal bowel sounds, Soft, No tenderness, No hepatosplenomegaly, No masses Extremities: No clubbing, No edema Labs LABS Laboratory Tests Test 05/10/16 18:50 05/10/16 20:30 05/11/16 05:15 White Blood Count 8.0x10^3/uL (4.0-11.0) 12.2x10^3/uL (4.0-11.0) Red Blood Count 4.59x10^6/uL (4.30-5.70) 4.16x10^6/uL (4.30-5.70) Hemoglobin 14.7g/dL (13.0-17.5) 13.8g/dL (13.0-17.5) Hematocrit 45.1% (39.0-53.0) 40.9% (39.0-53.0) Mean Corpuscular Volume 98fL (79-100) 98fL (79-100) Mean Corpuscular Hemoglobin 32pg (25-35) 33pg (25-35) Mean Corpuscular Hemoglobin Concent 33g/dL (31-37) 34g/dL (31-37) Red Cell Distribution Width 13.5% (11.5-14.5) 13.6% (11.5-14.5) Platelet Count 258x10^3/uL (140-400) 204x10^3/uL (140-400) Neutrophils (%) (Auto) 47% (31-73) 77% (31-73) Lymphocytes (%) (Auto) 44% (24-48) 12% (24-48) Monocytes (%) (Auto) 7% (0-9) 9% (0-9) Eosinophils (%) (Auto) 1% (0-3) 2% (0-3) Basophils (%) (Auto) 1% (0-3) 0% (0-3) Neutrophils # (Auto) 3.8x10^3uL (1.8-7.7) 9.4x10^3uL (1.8-7.7) Lymphocytes # (Auto) 3.5x10^3/uL (1.0-4.8) 1.5x10^3/uL (1.0-4.8) Monocytes # (Auto) 0.6x10^3/uL (0.0-1.1) 1.0x10^3/uL (0.0-1.1) Eosinophils # (Auto) 0.1x10^3/uL (0.0-0.7) 0.2x10^3/uL (0.0-0.7) Basophils # (Auto) 0.1x10^3/uL (0.0-0.2) 0.0x10^3/uL (0.0-0.2) Sodium Level 146mmol/L (136-145) 142mmol/L (136-145) Potassium Level 4.0mmol/L (3.5-5.1) 3.7mmol/L (3.5-5.1) Chloride Level 108mmol/L (98-107) 109mmol/L (98-107) Carbon Dioxide Level 25mmol/L (21-32) 28mmol/L (21-32) Anion Gap 13 (6-14) 5 (6-14) Blood Urea Nitrogen 35mg/dL (8-26) 30mg/dL (8-26) Creatinine 1.4mg/dL (0.7-1.3) 1.3mg/dL (0.7-1.3) Estimated GFR (Cockcroft-Gault) 50.2 54.7 BUN/Creatinine Ratio 25 (6-20) Glucose Level 123mg/dL (70-99) 86mg/dL (70-99) Calcium Level 9.2mg/dL (8.5-10.1) 8.3mg/dL (8.5-10.1) Total Bilirubin 0.9mg/dL (0.2-1.0) Aspartate Amino Transf (AST/SGOT) 23U/L (15-37) Alanine Aminotransferase (ALT/SGPT) 30U/L (16-63) Alkaline Phosphatase 44U/L (46-116) Troponin I Quantitative < 0.017ng/mL (0.000-0.055) Total Protein 7.0g/dL (6.4-8.2) Albumin 3.5g/dL (3.4-5.0) Albumin/Globulin Ratio 1.0 (1.0-1.7) Lipase 270U/L (73-393) Urine Collection Type Unknown Urine Color Maureen Urine Clarity Clear Urine pH 7.0 Urine Specific [place] 1.015 Urine Protein Negativemg/dL (NEG-TRACE) Urine Glucose (UA) Negativemg/dL (NEG) Urine Ketones (Stick) 15mg/dL (NEG) Urine Blood Negative (NEG) Urine Nitrite Negative (NEG) Urine Bilirubin Small (NEG) Urine Urobilinogen Dipstick 4.0mg/dL (0.2 mg/dL) Urine Leukocyte Esterase Negative (NEG) Urine RBC Occ/HPF (0-2) Urine WBC 5-10/HPF (0-4) Urine Squamous Epithelial Cells Few/LPF Urine Bacteria 0/HPF (0-FEW) Urine Hyaline Casts Few/HPF Urine Mucus Slight/LPF Review of Systems Review of Systems limited- dementia Assessment and Plan Assessmemt and Plan Cont home meds EEG Echo and tilt table NO other new orders Dw RN Problems Medical Problems: (1) Syncope Status: Acute Problems: Comment Review of Relevant I have reviewed the following items shelbie (where applicable) has been applied. Labs Laboratory Tests Test 05/10/16 18:50 05/10/16 20:30 05/11/16 05:15 White Blood Count 8.0x10^3/uL (4.0-11.0) 12.2x10^3/uL (4.0-11.0) Red Blood Count 4.59x10^6/uL (4.30-5.70) 4.16x10^6/uL (4.30-5.70) Hemoglobin 14.7g/dL (13.0-17.5) 13.8g/dL (13.0-17.5) Hematocrit 45.1% (39.0-53.0) 40.9% (39.0-53.0) Mean Corpuscular Volume 98fL (79-100) 98fL (79-100) Mean Corpuscular Hemoglobin 32pg (25-35) 33pg (25-35) Mean Corpuscular Hemoglobin Concent 33g/dL (31-37) 34g/dL (31-37) Red Cell Distribution Width 13.5% (11.5-14.5) 13.6% (11.5-14.5) Platelet Count 258x10^3/uL (140-400) 204x10^3/uL (140-400) Neutrophils (%) (Auto) 47% (31-73) 77% (31-73) Lymphocytes (%) (Auto) 44% (24-48) 12% (24-48) Monocytes (%) (Auto) 7% (0-9) 9% (0-9) Eosinophils (%) (Auto) 1% (0-3) 2% (0-3) Basophils (%) (Auto) 1% (0-3) 0% (0-3) Neutrophils # (Auto) 3.8x10^3uL (1.8-7.7) 9.4x10^3uL (1.8-7.7) Lymphocytes # (Auto) 3.5x10^3/uL (1.0-4.8) 1.5x10^3/uL (1.0-4.8) Monocytes # (Auto) 0.6x10^3/uL (0.0-1.1) 1.0x10^3/uL (0.0-1.1) Eosinophils # (Auto) 0.1x10^3/uL (0.0-0.7) 0.2x10^3/uL (0.0-0.7) Basophils # (Auto) 0.1x10^3/uL (0.0-0.2) 0.0x10^3/uL (0.0-0.2) Sodium Level 146mmol/L (136-145) 142mmol/L (136-145) Potassium Level 4.0mmol/L (3.5-5.1) 3.7mmol/L (3.5-5.1) Chloride Level 108mmol/L (98-107) 109mmol/L (98-107) Carbon Dioxide Level 25mmol/L (21-32) 28mmol/L (21-32) Anion Gap 13 (6-14) 5 (6-14) Blood Urea Nitrogen 35mg/dL (8-26) 30mg/dL (8-26) Creatinine 1.4mg/dL (0.7-1.3) 1.3mg/dL (0.7-1.3) Estimated GFR (Cockcroft-Gault) 50.2 54.7 BUN/Creatinine Ratio 25 (6-20) Glucose Level 123mg/dL (70-99) 86mg/dL (70-99) Calcium Level 9.2mg/dL (8.5-10.1) 8.3mg/dL (8.5-10.1) Total Bilirubin 0.9mg/dL (0.2-1.0) Aspartate Amino Transf (AST/SGOT) 23U/L (15-37) Alanine Aminotransferase (ALT/SGPT) 30U/L (16-63) Alkaline Phosphatase 44U/L (46-116) Troponin I Quantitative < 0.017ng/mL (0.000-0.055) Total Protein 7.0g/dL (6.4-8.2) Albumin 3.5g/dL (3.4-5.0) Albumin/Globulin Ratio 1.0 (1.0-1.7) Lipase 270U/L (73-393) Urine Collection Type Unknown Urine Color Maureen Urine Clarity Clear Urine pH 7.0 Urine Specific [place] 1.015 Urine Protein Negativemg/dL (NEG-TRACE) Urine Glucose (UA) Negativemg/dL (NEG) Urine Ketones (Stick) 15mg/dL (NEG) Urine Blood Negative (NEG) Urine Nitrite Negative (NEG) Urine Bilirubin Small (NEG) Urine Urobilinogen Dipstick 4.0mg/dL (0.2 mg/dL) Urine Leukocyte Esterase Negative (NEG) Urine RBC Occ/HPF (0-2) Urine WBC 5-10/HPF (0-4) Urine Squamous Epithelial Cells Few/LPF Urine Bacteria 0/HPF (0-FEW) Urine Hyaline Casts Few/HPF Urine Mucus Slight/LPF Laboratory Tests Test 05/10/16 18:50 05/10/16 20:30 05/11/16 05:15 White Blood Count 8.0x10^3/uL (4.0-11.0) 12.2x10^3/uL (4.0-11.0) Red Blood Count 4.59x10^6/uL (4.30-5.70) 4.16x10^6/uL (4.30-5.70) Hemoglobin 14.7g/dL (13.0-17.5) 13.8g/dL (13.0-17.5) Hematocrit 45.1% (39.0-53.0) 40.9% (39.0-53.0) Mean Corpuscular Volume 98fL (79-100) 98fL (79-100) Mean Corpuscular Hemoglobin 32pg (25-35) 33pg (25-35) Mean Corpuscular Hemoglobin Concent 33g/dL (31-37) 34g/dL (31-37) Red Cell Distribution Width 13.5% (11.5-14.5) 13.6% (11.5-14.5) Platelet Count 258x10^3/uL (140-400) 204x10^3/uL (140-400) Neutrophils (%) (Auto) 47% (31-73) 77% (31-73) Lymphocytes (%) (Auto) 44% (24-48) 12% (24-48) Monocytes (%) (Auto) 7% (0-9) 9% (0-9) Eosinophils (%) (Auto) 1% (0-3) 2% (0-3) Basophils (%) (Auto) 1% (0-3) 0% (0-3) Neutrophils # (Auto) 3.8x10^3uL (1.8-7.7) 9.4x10^3uL (1.8-7.7) Lymphocytes # (Auto) 3.5x10^3/uL (1.0-4.8) 1.5x10^3/uL (1.0-4.8) Monocytes # (Auto) 0.6x10^3/uL (0.0-1.1) 1.0x10^3/uL (0.0-1.1) Eosinophils # (Auto) 0.1x10^3/uL (0.0-0.7) 0.2x10^3/uL (0.0-0.7) Basophils # (Auto) 0.1x10^3/uL (0.0-0.2) 0.0x10^3/uL (0.0-0.2) Sodium Level 146mmol/L (136-145) 142mmol/L (136-145) Potassium Level 4.0mmol/L (3.5-5.1) 3.7mmol/L (3.5-5.1) Chloride Level 108mmol/L (98-107) 109mmol/L (98-107) Carbon Dioxide Level 25mmol/L (21-32) 28mmol/L (21-32) Anion Gap 13 (6-14) 5 (6-14) Blood Urea Nitrogen 35mg/dL (8-26) 30mg/dL (8-26) Creatinine 1.4mg/dL (0.7-1.3) 1.3mg/dL (0.7-1.3) Estimated GFR (Cockcroft-Gault) 50.2 54.7 BUN/Creatinine Ratio 25 (6-20) Glucose Level 123mg/dL (70-99) 86mg/dL (70-99) Calcium Level 9.2mg/dL (8.5-10.1) 8.3mg/dL (8.5-10.1) Total Bilirubin 0.9mg/dL (0.2-1.0) Aspartate Amino Transf (AST/SGOT) 23U/L (15-37) Alanine Aminotransferase (ALT/SGPT) 30U/L (16-63) Alkaline Phosphatase 44U/L (46-116) Troponin I Quantitative < 0.017ng/mL (0.000-0.055) Total Protein 7.0g/dL (6.4-8.2) Albumin 3.5g/dL (3.4-5.0) Albumin/Globulin Ratio 1.0 (1.0-1.7) Lipase 270U/L (73-393) Urine Collection Type Unknown Urine Color Maureen Urine Clarity Clear Urine pH 7.0 Urine Specific [place] 1.015 Urine Protein Negativemg/dL (NEG-TRACE) Urine Glucose (UA) Negativemg/dL (NEG) Urine Ketones (Stick) 15mg/dL (NEG) Urine Blood Negative (NEG) Urine Nitrite Negative (NEG) Urine Bilirubin Small (NEG) Urine Urobilinogen Dipstick 4.0mg/dL (0.2 mg/dL) Urine Leukocyte Esterase Negative (NEG) Urine RBC Occ/HPF (0-2) Urine WBC 5-10/HPF (0-4) Urine Squamous Epithelial Cells Few/LPF Urine Bacteria 0/HPF (0-FEW) Urine Hyaline Casts Few/HPF Urine Mucus Slight/LPF Medications Current Medications Sodium Chloride (Iv Sodium Chloride 0.9% 1000ml Bag) 1,000 ml @ 1,000 mls/hr 1X ONCE IV Last administered on 05/10/16 20:12; Start 05/10/16 at 19:45; Stop 05/10/16 at 20:44; Status DC Ondansetron HCl (Zofran) 4 mg 1X ONCE IV Last administered on 05/10/16 20:13 ; Start 05/10/16 at 19:45; Stop 05/10/16 at 19:46; Status DC Ondansetron HCl (Zofran) 4 mg PRN Q8HRS PRN IV NAUSEA/VOMITING; Start 05/10/16 at 21:00; Stop 05/11/16 at 20:59 Morphine Sulfate 2 mg PRN Q2HR PRN IV PAIN; Start 05/10/16 at 21:00; Stop 05/11 at 20:59 Acetaminophen (Tylenol) 650 mg PRN Q4HRS PRN PO FEVER; Start 05/10/16 at 21:00 ; Stop 05/11/16 at 20:59 Atorvastatin Calcium (Lipitor) 10 mg HS PO Last administered on 05/10/16 22:48 ; Start 05/10/16 at 22:00 Divalproex Sodium (Depakote Er) 250 mg BID PO Last administered on 05/11/16 08 :59; Start 05/10/16 at 22:00 Donepezil HCl (Aricept) 10 mg QHS PO Last administered on 05/10/16 22:48; Start 05/10/16 at 22:00 Duloxetine HCl (Cymbalta) 30 mg HS PO Last administered on 1/11/17at 22:48; Start 05/10/16 at 22:00 Lisinopril (Prinivil) 10 mg DAILY PO Last administered on 05/11/16 09:00; Start 05/11/16 at 09:00 Lorazepam (Ativan) 1 mg DAILY PO Last administered on 05/11/16 08:59; Start at 09:00 Memantine (Namenda) 10 mg DAILY PO Last administered on 05/11/16 08:59; Start 05/11/16 at 09:00 Trazodone HCl (Desyrel) 50 mg QHS PO Last administered on 05/10/16 22:48; Start 05/10/16 at 22:00 Non-Formulary Medication 1 tab QHS PO ; Start 05/11/16 at 21:00; Status UNV Lorazepam (Ativan) 1 mg 1X ONCE PO Last administered on 05/11/16 15:19; Start 05/11/16 at 15:15; Stop 05/11/16 at 15:16; Status DC Lorazepam (Ativan) 1 mg PRN BID PRN PO ANXIETY / AGITATION; Start 05/11/16 at 15:15 Active Scripts Active Reported Lorazepam 1 Mg Tablet 1 Mg PO DAILY Lisinopril 10 Mg Tablet 1 Tab PO DAILY Namenda (Memantine Hcl) 10 Mg Tablet 10 Mg PO DAILY Atorvastatin Calcium 10 Mg Tablet 10 Mg PO HS Aricept (Donepezil Hcl) 10 Mg Tablet 2.5 Tab PO QHS Trazodone Hcl 50 Mg Tablet 1.5 Tab PO QHS Melatonin 3 Mg Tablet 1 Tab PO QHS Depakote Er (Divalproex Sodium) 250 Mg Tab.er.24h 0.5 Tab PO BID Cymbalta (Duloxetine Hcl) 30 Mg Capsule. 1 Cap PO HS [omerprazole] 20 Mg PO PRN Vitals/I & O Vital Sign - Last 24 Hours 05/10/16 05/10/16 05/10/16 05/10/16 18:33 19:30 20:00 20:30 Temp 97.3 97.3 Pulse 64 72 68 72 Resp 22 20 24 20 B/P 131/84 106/64 106/71 103/60 Pulse Ox 97 95 97 99 O2 Delivery Room Air Room Air Room Air 05/10/16 05/10/16 05/11/1612/17 23:00 23:00 00:47 03:00 Temp 97.9 97.9 97.7 97.9 97.9 97.7 Pulse 84 84 67 Resp 18 18 18 B/P 125/85 125/85 116/50 Pulse Ox 99 99 98 O2 Delivery Room Air Room Air Room Air Room Air 05/11/16 05/11/16 05/11/16 05/11/16 07:00 08:00 09:00 15:00 Temp 96.4 98.8 96.4 98.8 Pulse 79 79 85 Resp 20 20 B/P 139/92 139/92 146/98 Pulse Ox 97 98 O2 Delivery Room Air Room Air Room Air Intake and Output 05/10/16 05/10/16 05/11/16 15:00 23:00 07:00 Intake Total 1000 ml Output Total 0 ml Balance 1000 ml 0 ml DANIE DE JESUS MD May 11, 2016 16:09
[2016-05-11 19:00] VITALS: BP 135/88
[2016-05-11] MEDS ORDERED: NON FORMULARY ITEM (Melatonin 1 TAB) PO SCH (21:00)
[2016-05-11] MEDS: LORAZEPAM 1 MG TABLET. PO PRN (21:11)
[2016-05-11] MEDS: DONEPEZIL HCL 10 MG TABLET. PO SCH (21:11)
[2016-05-11] MEDS: traZODone 50 MG TABLET. PO SCH (21:11)
[2016-05-11] MEDS: ATORVASTATIN CALCIUM 10 MG TABLET. PO SCH (21:11)
[2016-05-11] MEDS: DULOXETINE HCL 30 MG CAPSULE.DR. PO SCH (21:11)
[2016-05-11 23:00] VITALS: BP 141/97
[2016-05-12 03:00] VITALS: BP 146/94
[2016-05-12 07:00] VITALS: BP 126/88
[2016-05-12] MEDS: DIVALPROEX EXTENDED RELEASE 250 MG TAB.ER.24H. PO SCH ×2 (08:01→20:44)
[2016-05-12] MEDS: LISINOPRIL 10 MG TABLET PO SCH (08:01)
[2016-05-12] MEDS: LORAZEPAM 1 MG TABLET. PO SCH (08:02)
[2016-05-12] MEDS: MEMANTINE 10 MG TABLET. PO SCH (08:02)
--- NOTE | 2016-05-12 09:02 | PDOC ---
PROGRESS NOTES Chief Complaint Chief Complaint 1. Lewy Body dementia 2. Syncope, vagal 3. Mild pCM 4. prior syncope, concern for seizure History of Present Illness History of Present Illness pleasant, agreeable was at bedside Lives in [place] Cards has seen - for echo and tilt table and EEG by neuro HAs some xanax as home med Vitals Vitals Vital Signs Date Time Temp Pulse Resp B/P Pulse Ox O2 Delivery O2 Flow Rate FiO2 05/12/16 08:01 86 123/75 05/12/16 07:00 97.5 18 97 Room Air 97.5 Physical Exam General: Alert, Other (A&O x self only) Heart: Regular rate, Normal S1, Normal S2, No murmurs Lungs: Clear Abdomen: Normal bowel sounds, Soft, No tenderness, No hepatosplenomegaly, No masses Extremities: No clubbing, No edema Assessment and Plan Assessmemt and Plan tilt table, echo pending EEG per neuro Problems Medical Problems: (1) Syncope Status: Acute Problems: Comment Review of Relevant I have reviewed the following items shelbie (where applicable) has been applied. Labs Laboratory Tests Test 05/10/16 18:50 05/10/16 20:30 05/11/16 02:00 05/11/16 05:15 White Blood Count 8.0x10^3/uL (4.0-11.0) 12.2x10^3/uL (4.0-11.0) Red Blood Count 4.59x10^6/uL (4.30-5.70) 4.16x10^6/uL (4.30-5.70) Hemoglobin 14.7g/dL (13.0-17.5) 13.8g/dL (13.0-17.5) Hematocrit 45.1% (39.0-53.0) 40.9% (39.0-53.0) Mean Corpuscular Volume 98fL (79-100) 98fL (79-100) Mean Corpuscular Hemoglobin 32pg (25-35) 33pg (25-35) Mean Corpuscular Hemoglobin Concent 33g/dL (31-37) 34g/dL (31-37) Red Cell Distribution Width 13.5% (11.5-14.5) 13.6% (11.5-14.5) Platelet Count 258x10^3/uL (140-400) 204x10^3/uL (140-400) Neutrophils (%) (Auto) 47% (31-73) 77% (31-73) Lymphocytes (%) (Auto) 44% (24-48) 12% (24-48) Monocytes (%) (Auto) 7% (0-9) 9% (0-9) Eosinophils (%) (Auto) 1% (0-3) 2% (0-3) Basophils (%) (Auto) 1% (0-3) 0% (0-3) Neutrophils # (Auto) 3.8x10^3uL (1.8-7.7) 9.4x10^3uL (1.8-7.7) Lymphocytes # (Auto) 3.5x10^3/uL (1.0-4.8) 1.5x10^3/uL (1.0-4.8) Monocytes # (Auto) 0.6x10^3/uL (0.0-1.1) 1.0x10^3/uL (0.0-1.1) Eosinophils # (Auto) 0.1x10^3/uL (0.0-0.7) 0.2x10^3/uL (0.0-0.7) Basophils # (Auto) 0.1x10^3/uL (0.0-0.2) 0.0x10^3/uL (0.0-0.2) Sodium Level 146mmol/L (136-145) 142mmol/L (136-145) Potassium Level 4.0mmol/L (3.5-5.1) 3.7mmol/L (3.5-5.1) Chloride Level 108mmol/L (98-107) 109mmol/L (98-107) Carbon Dioxide Level 25mmol/L (21-32) 28mmol/L (21-32) Anion Gap 13 (6-14) 5 (6-14) Blood Urea Nitrogen 35mg/dL (8-26) 30mg/dL (8-26) Creatinine 1.4mg/dL (0.7-1.3) 1.3mg/dL (0.7-1.3) Estimated GFR (Cockcroft-Gault) 50.2 54.7 BUN/Creatinine Ratio 25 (6-20) Glucose Level 123mg/dL (70-99) 86mg/dL (70-99) Calcium Level 9.2mg/dL (8.5-10.1) 8.3mg/dL (8.5-10.1) Total Bilirubin 0.9mg/dL (0.2-1.0) Aspartate Amino Transf (AST/SGOT) 23U/L (15-37) Alanine Aminotransferase (ALT/SGPT) 30U/L (16-63) Alkaline Phosphatase 44U/L (46-116) Troponin I Quantitative < 0.017ng/mL (0.000-0.055) Total Protein 7.0g/dL (6.4-8.2) Albumin 3.5g/dL (3.4-5.0) Albumin/Globulin Ratio 1.0 (1.0-1.7) Lipase 270U/L (73-393) Urine Collection Type Unknown Urine Color Maureen Urine Clarity Clear Urine pH 7.0 Urine Specific [place] 1.015 Urine Protein Negativemg/dL (NEG-TRACE) Urine Glucose (UA) Negativemg/dL (NEG) Urine Ketones (Stick) 15mg/dL (NEG) Urine Blood Negative (NEG) Urine Nitrite Negative (NEG) Urine Bilirubin Small (NEG) Urine Urobilinogen Dipstick 4.0mg/dL (0.2 mg/dL) Urine Leukocyte Esterase Negative (NEG) Urine RBC Occ/HPF (0-2) Urine WBC 5-10/HPF (0-4) Urine Squamous Epithelial Cells Few/LPF Urine Bacteria 0/HPF (0-FEW) Urine Hyaline Casts Few/HPF Urine Mucus Slight/LPF Nasal Screen MRSA (PCR) Negative (Negative) Medications Current Medications Sodium Chloride (Iv Sodium Chloride 0.9% 1000ml Bag) 1,000 ml @ 1,000 mls/hr 1X ONCE IV Last administered on 05/10/16 20:12; Start 05/10/16 at 19:45; Stop 05/10/16 at 20:44; Status DC Ondansetron HCl (Zofran) 4 mg 1X ONCE IV Last administered on 05/10/16 20:13 ; Start 05/10/16 at 19:45; Stop 05/10/16 at 19:46; Status DC Ondansetron HCl (Zofran) 4 mg PRN Q8HRS PRN IV NAUSEA/VOMITING; Start 05/10/16 at 21:00; Stop 05/11/16 at 20:59; Status DC Morphine Sulfate 2 mg PRN Q2HR PRN IV PAIN; Start 05/10/16 at 21:00; Stop 05/11 at 20:59; Status DC Acetaminophen (Tylenol) 650 mg PRN Q4HRS PRN PO FEVER; Start 05/10/16 at 21:00 ; Stop 05/11/16 at 20:59; Status DC Atorvastatin Calcium (Lipitor) 10 mg HS PO Last administered on 05/11/16 21:11 ; Start 05/10/16 at 22:00 Divalproex Sodium (Depakote Er) 250 mg BID PO Last administered on 05/12/16 08 :01; Start 05/10/16 at 22:00 Donepezil HCl (Aricept) 10 mg QHS PO Last administered on 05/11/16 21:11; Start 05/10/16 at 22:00 Duloxetine HCl (Cymbalta) 30 mg HS PO Last administered on 05/11/16 21:11; Start 05/10/16 at 22:00 Lisinopril (Prinivil) 10 mg DAILY PO Last administered on 05/12/16 08:01; Start 05/11/16 at 09:00 Lorazepam (Ativan) 1 mg DAILY PO Last administered on 05/12/16 08:02; Start at 09:00 Memantine (Namenda) 10 mg DAILY PO Last administered on 05/12/16 08:02; Start 05/11/16 at 09:00 Trazodone HCl (Desyrel) 50 mg QHS PO Last administered on 05/11/16 21:11; Start 05/10/16 at 22:00 Non-Formulary Medication 1 tab QHS PO ; Start 05/11/16 at 21:00; Status UNV Lorazepam (Ativan) 1 mg 1X ONCE PO Last administered on 05/11/16 15:19; Start 05/11/16 at 15:15; Stop 05/11/16 at 15:16; Status DC Lorazepam (Ativan) 1 mg PRN BID PRN PO ANXIETY / AGITATION Last administered on 05/11/16t 21:11; Start 05/11/16 at 15:15 Active Scripts Active Reported Lorazepam 1 Mg Tablet 1 Mg PO DAILY Lisinopril 10 Mg Tablet 1 Tab PO DAILY Namenda (Memantine Hcl) 10 Mg Tablet 10 Mg PO DAILY Atorvastatin Calcium 10 Mg Tablet 10 Mg PO HS Aricept (Donepezil Hcl) 10 Mg Tablet 2.5 Tab PO QHS Trazodone Hcl 50 Mg Tablet 1.5 Tab PO QHS Melatonin 3 Mg Tablet 1 Tab PO QHS Depakote Er (Divalproex Sodium) 250 Mg Tab.er.24h 0.5 Tab PO BID Cymbalta (Duloxetine Hcl) 30 Mg Capsule.dr 1 Cap PO HS [omerprazole] 20 Mg PO PRN Vitals/I & O Vital Sign - Last 24 Hours 05/11/16 05/11/16 05/11/16 05/11/16 15:00 19:00 20:00 23:00 Temp 98.8 98.8 98.4 98.8 98.8 98.4 Pulse 85 65 72 Resp 18 B/P 146/98 135/88 141/97 Pulse Ox 98 98 98 O2 Delivery Room Air Room Air Room Air Room Air 05/12/16 05/12/16 05/12/16 03:00 07:00 08:01 Temp 99.0 97.5 99.0 97.5 Pulse 68 80 86 Resp 18 18 B/P 146/94 126/88 123/75 Pulse Ox 99 97 O2 Delivery Room Air Room Air Intake and Output 05/11/16 05/11/16 05/12/16 15:00 23:00 07:00 Intake Total 350 ml 0 ml Balance 350 ml 0 ml ALLYSON KASPER MD May 12, 2016 09:02
--- NOTE | 2016-05-12 10:05 | PDOC ---
PROGRESS NOTES Assessment Problems Medical Problems: (1) Syncope Status: Acute Lewy body dementia with some hallmarks of parkinsonism and according to the nurse typical fluctuating mental status throughout the day. Vasovagal syncope due to choking, by history. No evidence that he had a seizure. However, he has had episodes of syncope for the past few years which are unexplained. Plan Await electroencephalogram No other neurological studies such as repeat brain imaging required Okay from me for discharge later today, follow up with his neurologist at , Dr. Bentley Subjective No complaints, He denies pain Objective Vital Signs Date Time Temp Pulse Resp B/P Pulse Ox O2 Delivery O2 Flow Rate FiO2 05/12/16 08:01 86 123/75 05/12/16 07:00 97.5 18 97 Room Air 97.5 Intake and Output 05/12/16 07:00 Intake Total 350 ml Balance 350 ml Intake Oral 350 ml # Voids 6 PHYSICAL EXAM Alert. Oriented only to person. PERRL. EOMI. CN: no focal findings. Muscle tone: cogwheel rigidity. Muscle strength: 4/5 DTR: 1+ Plantar reflex: flexor Gait: not examined in bed. Sensory exam: no abnormal findings. No cerebellar signs elicited. No tremor Review of Relevant I have reviewed the following items shelbie (where applicable) has been applied. Labs Laboratory Tests Test 05/10/16 18:50 05/10/16 20:30 05/11/16 02:00 05/11/16 05:15 White Blood Count 8.0x10^3/uL (4.0-11.0) 12.2x10^3/uL (4.0-11.0) Red Blood Count 4.59x10^6/uL (4.30-5.70) 4.16x10^6/uL (4.30-5.70) Hemoglobin 14.7g/dL (13.0-17.5) 13.8g/dL (13.0-17.5) Hematocrit 45.1% (39.0-53.0) 40.9% (39.0-53.0) Mean Corpuscular Volume 98fL (79-100) 98fL (79-100) Mean Corpuscular Hemoglobin 32pg (25-35) 33pg (25-35) Mean Corpuscular Hemoglobin Concent 33g/dL (31-37) 34g/dL (31-37) Red Cell Distribution Width 13.5% (11.5-14.5) 13.6% (11.5-14.5) Platelet Count 258x10^3/uL (140-400) 204x10^3/uL (140-400) Neutrophils (%) (Auto) 47% (31-73) 77% (31-73) Lymphocytes (%) (Auto) 44% (24-48) 12% (24-48) Monocytes (%) (Auto) 7% (0-9) 9% (0-9) Eosinophils (%) (Auto) 1% (0-3) 2% (0-3) Basophils (%) (Auto) 1% (0-3) 0% (0-3) Neutrophils # (Auto) 3.8x10^3uL (1.8-7.7) 9.4x10^3uL (1.8-7.7) Lymphocytes # (Auto) 3.5x10^3/uL (1.0-4.8) 1.5x10^3/uL (1.0-4.8) Monocytes # (Auto) 0.6x10^3/uL (0.0-1.1) 1.0x10^3/uL (0.0-1.1) Eosinophils # (Auto) 0.1x10^3/uL (0.0-0.7) 0.2x10^3/uL (0.0-0.7) Basophils # (Auto) 0.1x10^3/uL (0.0-0.2) 0.0x10^3/uL (0.0-0.2) Sodium Level 146mmol/L (136-145) 142mmol/L (136-145) Potassium Level 4.0mmol/L (3.5-5.1) 3.7mmol/L (3.5-5.1) Chloride Level 108mmol/L (98-107) 109mmol/L (98-107) Carbon Dioxide Level 25mmol/L (21-32) 28mmol/L (21-32) Anion Gap 13 (6-14) 5 (6-14) Blood Urea Nitrogen 35mg/dL (8-26) 30mg/dL (8-26) Creatinine 1.4mg/dL (0.7-1.3) 1.3mg/dL (0.7-1.3) Estimated GFR (Cockcroft-Gault) 50.2 54.7 BUN/Creatinine Ratio 25 (6-20) Glucose Level 123mg/dL (70-99) 86mg/dL (70-99) Calcium Level 9.2mg/dL (8.5-10.1) 8.3mg/dL (8.5-10.1) Total Bilirubin 0.9mg/dL (0.2-1.0) Aspartate Amino Transf (AST/SGOT) 23U/L (15-37) Alanine Aminotransferase (ALT/SGPT) 30U/L (16-63) Alkaline Phosphatase 44U/L (46-116) Troponin I Quantitative < 0.017ng/mL (0.000-0.055) Total Protein 7.0g/dL (6.4-8.2) Albumin 3.5g/dL (3.4-5.0) Albumin/Globulin Ratio 1.0 (1.0-1.7) Lipase 270U/L (73-393) Urine Collection Type Unknown Urine Color Maureen Urine Clarity Clear Urine pH 7.0 Urine Specific [place] 1.015 Urine Protein Negativemg/dL (NEG-TRACE) Urine Glucose (UA) Negativemg/dL (NEG) Urine Ketones (Stick) 15mg/dL (NEG) Urine Blood Negative (NEG) Urine Nitrite Negative (NEG) Urine Bilirubin Small (NEG) Urine Urobilinogen Dipstick 4.0mg/dL (0.2 mg/dL) Urine Leukocyte Esterase Negative (NEG) Urine RBC Occ/HPF (0-2) Urine WBC 5-10/HPF (0-4) Urine Squamous Epithelial Cells Few/LPF Urine Bacteria 0/HPF (0-FEW) Urine Hyaline Casts Few/HPF Urine Mucus Slight/LPF Nasal Screen MRSA (PCR) Negative (Negative) Medications Current Medications Sodium Chloride (Iv Sodium Chloride 0.9% 1000ml Bag) 1,000 ml @ 1,000 mls/hr 1X ONCE IV Last administered on 05/10/16t 20:12; Start 05/10/16 at 19:45; Stop 05/10/16 at 20:44; Status DC Ondansetron HCl (Zofran) 4 mg 1X ONCE IV Last administered on 05/10/16 20:13 ; Start 05/10/16 at 19:45; Stop 05/10/16 at 19:46; Status DC Ondansetron HCl (Zofran) 4 mg PRN Q8HRS PRN IV NAUSEA/VOMITING; Start 05/10/16 at 21:00; Stop 05/11/16 at 20:59; Status DC Morphine Sulfate 2 mg PRN Q2HR PRN IV PAIN; Start 05/10/16 at 21:00; Stop 05/11 at 20:59; Status DC Acetaminophen (Tylenol) 650 mg PRN Q4HRS PRN PO FEVER; Start 05/10/16 at 21:00 ; Stop 05/11/16 at 20:59; Status DC Atorvastatin Calcium (Lipitor) 10 mg HS PO Last administered on 05/11/16 21:11 ; Start 05/10/16 at 22:00 Divalproex Sodium (Depakote Er) 250 mg BID PO Last administered on 05/12/16 08 :01; Start 05/10/16 at 22:00 Donepezil HCl (Aricept) 10 mg QHS PO Last administered on 05/11/16 21:11; Start 05/10/16 at 22:00 Duloxetine HCl (Cymbalta) 30 mg HS PO Last administered on 05/11/16 21:11; Start 05/10/16 at 22:00 Lisinopril (Prinivil) 10 mg DAILY PO Last administered on 05/12/16 08:01; Start 05/11/16 at 09:00 Lorazepam (Ativan) 1 mg DAILY PO Last administered on 05/12/16 08:02; Start at 09:00 Memantine (Namenda) 10 mg DAILY PO Last administered on 05/12/16 08:02; Start 05/11/16 at 09:00 Trazodone HCl (Desyrel) 50 mg QHS PO Last administered on 05/11/16 21:11; Start 05/10/16 at 22:00 Non-Formulary Medication 1 tab QHS PO ; Start 05/11/16 at 21:00; Status UNV Lorazepam (Ativan) 1 mg 1X ONCE PO Last administered on 05/11/16 15:19; Start 05/11/16 at 15:15; Stop 05/11/16 at 15:16; Status DC Lorazepam (Ativan) 1 mg PRN BID PRN PO ANXIETY / AGITATION Last administered on 05/11/16 21:11; Start 05/11/16 at 15:15 Active Scripts Active Reported Lorazepam 1 Mg Tablet 1 Mg PO DAILY Lisinopril 10 Mg Tablet 1 Tab PO DAILY Namenda (Memantine Hcl) 10 Mg Tablet 10 Mg PO DAILY Atorvastatin Calcium 10 Mg Tablet 10 Mg PO HS Aricept (Donepezil Hcl) 10 Mg Tablet 2.5 Tab PO QHS Trazodone Hcl 50 Mg Tablet 1.5 Tab PO QHS Melatonin 3 Mg Tablet 1 Tab PO QHS Depakote Er (Divalproex Sodium) 250 Mg Tab.er.24h 0.5 Tab PO BID Cymbalta (Duloxetine Hcl) 30 Mg Capsule. 1 Cap PO HS [omerprazole] 20 Mg PO PRN Vitals/I & O Vital Sign - Last 24 Hours 05/11/16 05/11/16 05/11/16 05/11/16 15:00 19:00 20:00 23:00 Temp 98.8 98.8 98.4 98.8 98.8 98.4 Pulse 85 65 72 Resp 20 18 18 B/P 146/98 135/88 141/97 Pulse Ox 98 98 98 O2 Delivery Room Air Room Air Room Air Room Air 05/12/16 05/12/16 05/12/16 03:00 07:00 08:01 Temp 99.0 97.5 99.0 97.5 Pulse 68 80 86 Resp 18 18 B/P 146/94 126/88 123/75 Pulse Ox 99 97 O2 Delivery Room Air Room Air Intake and Output 05/11/16 05/11/16 05/12/16 15:00 23:00 07:00 Intake Total 350 ml 0 ml Balance 350 ml 0 ml FABRICIO GOMEZ MD May 12, 2016 10:05
[2016-05-12] MEDS: LORAZEPAM 1 MG TABLET. PO PRN ×2 (12:04→17:05)
--- NOTE | 2016-05-12 14:12 | PDOC ---
PROGRESS NOTES Subjective Subjective A&o x 2 cooperative. Denies any chest pain or SOB at this time Objective Objective Vital Signs Date Time Temp Pulse Resp B/P Pulse Ox O2 Delivery O2 Flow Rate FiO2 05/12/16 08:01 86 123/75 05/12/16 07:00 97.5 18 97 Room Air 97.5 Intake and Output 05/12/16 07:00 Intake Total 350 ml Balance 350 ml Intake Oral 350 ml # Voids 6 Physical Exam Abdomen: Normal bowel sounds, Soft, No tenderness, No hepatosplenomegaly, No masses Heart: Regular rate, Normal S1, Normal S2, No murmurs, Gallops General: Alert, Cooperative, Other (oriented to person and palce) Lungs: Clear to auscultation, Normal air movement Neck: Supple, No JVD, No thyromegaly Assessment Assessment This patient with an advanced dementia that is in a custodial. He had a tilt table test done today and the test was negative for neurocardiogenic syncope. Following the tilt table test carotid sinus massage was done and he was negative on the left but on the right the patient had a 2.5 second pause. This brings about the possibility of carotid sinus hypersensitivity and the situation in which the patient may need to have a pacemaker. To do a permanent pacemaker in this patient would probably require a general anesthetic and it would also be difficult to keep him from moving the arm and to make him understand about not moving the arm because of the possibility of dislodging the leads. In addition to that this patient is not able to make his own decisions with regards to this and I would suggest to continue with observation and send him back to the custodial. But it will be up to the patient's family and the DPOA to decide how to treat this patient. Comment Labs Laboratory Tests Test 05/10/16 18:50 05/10/16 20:30 05/11/16 02:00 05/11/16 05:15 White Blood Count 8.0x10^3/uL (4.0-11.0) 12.2x10^3/uL (4.0-11.0) Red Blood Count 4.59x10^6/uL (4.30-5.70) 4.16x10^6/uL (4.30-5.70) Hemoglobin 14.7g/dL (13.0-17.5) 13.8g/dL (13.0-17.5) Hematocrit 45.1% (39.0-53.0) 40.9% (39.0-53.0) Mean Corpuscular Volume 98fL (79-100) 98fL (79-100) Mean Corpuscular Hemoglobin 32pg (25-35) 33pg (25-35) Mean Corpuscular Hemoglobin Concent 33g/dL (31-37) 34g/dL (31-37) Red Cell Distribution Width 13.5% (11.5-14.5) 13.6% (11.5-14.5) Platelet Count 258x10^3/uL (140-400) 204x10^3/uL (140-400) Neutrophils (%) (Auto) 47% (31-73) 77% (31-73) Lymphocytes (%) (Auto) 44% (24-48) 12% (24-48) Monocytes (%) (Auto) 7% (0-9) 9% (0-9) Eosinophils (%) (Auto) 1% (0-3) 2% (0-3) Basophils (%) (Auto) 1% (0-3) 0% (0-3) Neutrophils # (Auto) 3.8x10^3uL (1.8-7.7) 9.4x10^3uL (1.8-7.7) Lymphocytes # (Auto) 3.5x10^3/uL (1.0-4.8) 1.5x10^3/uL (1.0-4.8) Monocytes # (Auto) 0.6x10^3/uL (0.0-1.1) 1.0x10^3/uL (0.0-1.1) Eosinophils # (Auto) 0.1x10^3/uL (0.0-0.7) 0.2x10^3/uL (0.0-0.7) Basophils # (Auto) 0.1x10^3/uL (0.0-0.2) 0.0x10^3/uL (0.0-0.2) Sodium Level 146mmol/L (136-145) 142mmol/L (136-145) Potassium Level 4.0mmol/L (3.5-5.1) 3.7mmol/L (3.5-5.1) Chloride Level 108mmol/L (98-107) 109mmol/L (98-107) Carbon Dioxide Level 25mmol/L (21-32) 28mmol/L (21-32) Anion Gap 13 (6-14) 5 (6-14) Blood Urea Nitrogen 35mg/dL (8-26) 30mg/dL (8-26) Creatinine 1.4mg/dL (0.7-1.3) 1.3mg/dL (0.7-1.3) Estimated GFR (Cockcroft-Gault) 50.2 54.7 BUN/Creatinine Ratio 25 (6-20) Glucose Level 123mg/dL (70-99) 86mg/dL (70-99) Calcium Level 9.2mg/dL (8.5-10.1) 8.3mg/dL (8.5-10.1) Total Bilirubin 0.9mg/dL (0.2-1.0) Aspartate Amino Transf (AST/SGOT) 23U/L (15-37) Alanine Aminotransferase (ALT/SGPT) 30U/L (16-63) Alkaline Phosphatase 44U/L (46-116) Troponin I Quantitative < 0.017ng/mL (0.000-0.055) Total Protein 7.0g/dL (6.4-8.2) Albumin 3.5g/dL (3.4-5.0) Albumin/Globulin Ratio 1.0 (1.0-1.7) Lipase 270U/L (73-393) Urine Collection Type Unknown Urine Color Maureen Urine Clarity Clear Urine pH 7.0 Urine Specific [place] 1.015 Urine Protein Negativemg/dL (NEG-TRACE) Urine Glucose (UA) Negativemg/dL (NEG) Urine Ketones (Stick) 15mg/dL (NEG) Urine Blood Negative (NEG) Urine Nitrite Negative (NEG) Urine Bilirubin Small (NEG) Urine Urobilinogen Dipstick 4.0mg/dL (0.2 mg/dL) Urine Leukocyte Esterase Negative (NEG) Urine RBC Occ/HPF (0-2) Urine WBC 5-10/HPF (0-4) Urine Squamous Epithelial Cells Few/LPF Urine Bacteria 0/HPF (0-FEW) Urine Hyaline Casts Few/HPF Urine Mucus Slight/LPF Nasal Screen MRSA (PCR) Negative (Negative) Microbiology 05/10/16 Urine Culture - Final, Complete 05/10/16 Urine Culture Result 1 (MARTHA) - Final, Complete Medications Current Medications Sodium Chloride (Iv Sodium Chloride 0.9% 1000ml Bag) 1,000 ml @ 1,000 mls/hr 1X ONCE IV Last administered on 05/10/16 20:12; Start 05/10/16 at 19:45; Stop 05/10/16 at 20:44; Status DC Ondansetron HCl (Zofran) 4 mg 1X ONCE IV Last administered on 05/10/16 20:13 ; Start 05/10/16 at 19:45; Stop 05/10/16 at 19:46; Status DC Ondansetron HCl (Zofran) 4 mg PRN Q8HRS PRN IV NAUSEA/VOMITING; Start 05/10/16 at 21:00; Stop 05/11/16 at 20:59; Status DC Morphine Sulfate 2 mg PRN Q2HR PRN IV PAIN; Start 05/10/16 at 21:00; Stop 05/11 at 20:59; Status DC Acetaminophen (Tylenol) 650 mg PRN Q4HRS PRN PO FEVER; Start 05/10/16 at 21:00 ; Stop 05/11/16 at 20:59; Status DC Atorvastatin Calcium (Lipitor) 10 mg HS PO Last administered on 05/11/16 21:11 ; Start 05/10/16 at 22:00 Divalproex Sodium (Depakote Er) 250 mg BID PO Last administered on 05/12/16 08 :01; Start 05/10/16 at 22:00 Donepezil HCl (Aricept) 10 mg QHS PO Last administered on 05/11/16 21:11; Start 05/10/16 at 22:00 Duloxetine HCl (Cymbalta) 30 mg HS PO Last administered on 05/11/16 21:11; Start 05/10/16 at 22:00 Lisinopril (Prinivil) 10 mg DAILY PO Last administered on 05/12/16 08:01; Start 05/11/16 at 09:00 Lorazepam (Ativan) 1 mg DAILY PO Last administered on 05/12/16 08:02; Start at 09:00 Memantine (Namenda) 10 mg DAILY PO Last administered on 05/12/16 08:02; Start 05/11/16 at 09:00 Trazodone HCl (Desyrel) 50 mg QHS PO Last administered on 05/11/16 21:11; Start 05/10/16 at 22:00 Non-Formulary Medication 1 tab QHS PO ; Start 05/11/16 at 21:00; Status UNV Lorazepam (Ativan) 1 mg 1X ONCE PO Last administered on 05/11/16 15:19; Start 05/11/16 at 15:15; Stop 05/11/16 at 15:16; Status DC Lorazepam (Ativan) 1 mg PRN BID PRN PO ANXIETY / AGITATION Last administered on 05/12/16 12:04; Start 05/11/16 at 15:15 Active Scripts Active Reported Lorazepam 1 Mg Tablet 1 Mg PO DAILY Lisinopril 10 Mg Tablet 1 Tab PO DAILY Namenda (Memantine Hcl) 10 Mg Tablet 10 Mg PO DAILY Atorvastatin Calcium 10 Mg Tablet 10 Mg PO HS Aricept (Donepezil Hcl) 10 Mg Tablet 2.5 Tab PO QHS Trazodone Hcl 50 Mg Tablet 1.5 Tab PO QHS Melatonin 3 Mg Tablet 1 Tab PO QHS Depakote Er (Divalproex Sodium) 250 Mg Tab.er.24h 0.5 Tab PO BID Cymbalta (Duloxetine Hcl) 30 Mg Capsule. 1 Cap PO HS [omerprazole] 20 Mg PO PRN Vitals/I & O Vital Sign - Last 24 Hours 05/11/16 05/11/16 05/11/16 05/11/16 15:00 19:00 20:00 23:00 Temp 98.8 98.8 98.4 98.8 98.8 98.4 Pulse 85 65 72 Resp 20 18 B/P 146/98 135/88 141/97 Pulse Ox 98 98 98 O2 Delivery Room Air Room Air Room Air Room Air 05/12/16 05/12/16 05/12/16 03:00 07:00 08:01 Temp 99.0 97.5 99.0 97.5 Pulse 68 80 86 Resp 18 18 B/P 146/94 126/88 123/75 Pulse Ox 99 97 O2 Delivery Room Air Room Air Intake and Output 05/11/16 05/11/16 05/12/16 15:00 23:00 07:00 Intake Total 350 ml 0 ml Balance 350 ml 0 ml KENNA SUERO MD May 12, 2016 14:12
[2016-05-12 15:41] VITALS: BP 125/92
--- NOTE | 2016-05-12 16:59 | EEG ---
DATE OF SERVICE: 05/12/2016 EEG NUMBER: [id number], performed on 05/12/2016. OBJECTIVE: The patient is a 70-year-old male with dementia and episodes of syncope. DESCRIPTION OF PROCEDURE: This is a digital study. Electrodes are placed according to the international 10-20 system. Bipolar and referential montages are available. Activation procedures typically include hyperventilation and intermittent photic stimulation. INTERPRETATION: The waking background consists of 7-8 Hz, 10-20 microvolt activity, symmetrically distributed over parietooccipital regions and reactive to eye opening. Hyperventilation and intermittent photic stimulation are noncontributory. Sleep is not achieved. IMPRESSION: This electroencephalogram with the patient awake only is abnormal because of mild, diffuse disturbance of cerebral activity consistent with any of a variety of toxic and metabolic encephalopathies including dementia. There is no focal, paroxysmal or epileptiform activity. Thank you for letting us help with the patient's care. FABRICIO GOMEZ MD DR: SONAL/mere JOB#: [id number] / [id number] ALLYSON Martinez MD
--- NOTE | 2016-05-12 17:52 | CARD ---
APPROVED REPORT EXAM: Two-dimensional and M-mode echocardiogram with Doppler and color Doppler. Other Information Quality : GoodHR: 77bpm Rhythm : NSR INDICATION Evaluate cardiac structures 2D DIMENSIONS RVDd2.5 (2.9-3.5cm)Left Atrium(2D)2.5 (1.6-4.0cm) IVSd0.7 (0.7-1.1cm)Aortic Root(2D)4.0 (2.0-3.7cm) LVDd4.5 (3.9-5.9cm)LVOT Diameter2.3 (1.8-2.4cm) PWd0.8 (0.7-1.1cm)LVDs2.7 (2.5-4.0cm) FS (%) 40.7 %SV66.9 ml LVEF(%)70.0 (>50%) Aortic Valve AoV Peak David.139.3cm/sAoV VTI30.1cm AO Peak GR.7.8mmHgLVOT Peak David.128.6cm/s AO Mean GR.5mmHgAVA (VMAX)3.87cm2 Mitral Valve MV E Yypfiwsb41.9cm/sMV DECEL [id number] MV A Abkmjcuu54.7cm/sE/A Ratio1.2 MV A Foxqxofu202qv Pulmonary Valve PV Peak Dfronnqa24.5cm/s Tricuspid Valve TR P. Iamkfvfs316ev/sRAP APIILYNY7lwPe TR Peak Gr.21fjZfOEDU84vfDb Pulmonary Vein S1 Kzvgzhfv70.7cm/sD2 Nznwzvsn22.1cm/s PVa olnbsfjd39pnlg LEFT VENTRICLE The left ventricle is normal size. There is normal left ventricular wall thickness. The left ventricu lar systolic function is normal and the ejection fraction is within normal range. The Ejection Fracti on is 70%. There is normal LV segmental wall motion. Transmitral Doppler flow pattern is Grade II-pse udonormal filling dynamics. RIGHT VENTRICLE The right ventricle is normal size. There is normal right ventricular wall thickness. The right ventr icular systolic function is normal. AORTIC VALVE The aortic valve is normal in structure Doppler and Color Flow revealed trace aortic regurgitation. T here is no significant aortic valvular stenosis. MITRAL VALVE The mitral valve is normal in structure and function. There is no evidence of mitral valve prolapse. There is no mitral valve stenosis. Doppler and Color Flow revealed no mitral valve regurgitation note d. TRICUSPID VALVE The tricuspid valve is normal in structure Doppler and Color Flow revealed mild tricuspid regurgitati on. There is no tricuspid valve stenosis. PULMONIC VALVE The pulmonary valve is normal in structure Doppler and Color Flow revealed mild pulmonic valvular reg urgitation. There is no pulmonic valvular stenosis. GREAT VESSELS The aortic root is normal in size. The ascending aorta is normal in size. The pulmonary artery is nor mal. The IVC is normal in size and collapses >50% with inspiration. PERICARDIAL EFFUSION There is no evidence of significant pericardial effusion. Critical Notification Critical Value: No <Conclusion> The left ventricular systolic function is normal and the ejection fraction is within normal range. The Ejection Fraction is 70%. Transmitral Doppler flow pattern is Grade II-pseudonormal filling dynamics. Doppler and Color Flow revealed trace aortic regurgitation. The mitral valve is normal in structure and function. Doppler and Color Flow revealed mild tricuspid regurgitation. Doppler and Color Flow revealed mild pulmonic valvular regurgitation. There is no evidence of significant pericardial effusion.
[2016-05-12 19:00] VITALS: BP 125/89
[2016-05-12] MEDS: ATORVASTATIN CALCIUM 10 MG TABLET. PO SCH (20:44)
[2016-05-12] MEDS: DONEPEZIL HCL 10 MG TABLET. PO SCH (20:44)
[2016-05-12] MEDS: DULOXETINE HCL 30 MG CAPSULE.DR. PO SCH (20:44)
[2016-05-12] MEDS: traZODone 50 MG TABLET. PO SCH (20:44)
[2016-05-12 23:00] VITALS: BP 114/82
[2016-05-13 03:14] VITALS: BP 130/86
[2016-05-13 07:00] VITALS: BP 132/75
[2016-05-13] MEDS: LORAZEPAM 1 MG TABLET. PO SCH (08:08)
[2016-05-13 09:00] VITALS: BP 132/75
[2016-05-13] MEDS: MEMANTINE 10 MG TABLET. PO SCH (09:00)
[2016-05-13] MEDS: LISINOPRIL 10 MG TABLET PO SCH (09:00)
[2016-05-13] MEDS: DIVALPROEX EXTENDED RELEASE 250 MG TAB.ER.24H. PO SCH (09:00)
[2016-05-13] MEDS ORDERED: LORAZEPAM 2 MG/ML VIAL IV ONE (10:15)
--- NOTE | 2016-05-13 10:19 | PDOC ---
PROGRESS NOTES Assessment Problems Medical Problems: (1) Lewy body dementia Status: Acute (2) Syncope Status: Acute Lewy body dementia with some hallmarks of parkinsonism and according to the nurse typical fluctuating mental status throughout the day. Vasovagal syncope due to choking, by history. No evidence that he had a seizure. However, he has had episodes of syncope for the past few years which are unexplained. Unfortunately autonomic insufficiency is a hallmark of Lewy body dementia. Plan No other neurological studies such as repeat brain imaging required Okay from me for discharge Subjective No complaints, wants to go home, awaiting cardiology clearance Objective Vital Signs Date Time Temp Pulse Resp B/P Pulse Ox O2 Delivery O2 Flow Rate FiO2 05/13/16 09:00 77 132/75 05/13/16 07:00 97.7 20 96 Room Air 97.7 Intake and Output 05/13/16 07:00 # Voids 5 # Bowel Movements 1 PHYSICAL EXAM Alert. Oriented only to person. PERRL. EOMI. CN: no focal findings. Muscle tone: cogwheel rigidity. Muscle strength: 4/5 DTR: 1+ Plantar reflex: flexor Gait: not examined in bed. Sensory exam: no abnormal findings. No cerebellar signs elicited. No tremor Review of Relevant I have reviewed the following items shelbie (where applicable) has been applied. Labs Microbiology 05/10/16 Urine Culture - Final, Complete 05/10/16 Urine Culture Result 1 (MARTHA) - Final, Complete Medications Current Medications Sodium Chloride (Iv Sodium Chloride 0.9% 1000ml Bag) 1,000 ml @ 1,000 mls/hr 1X ONCE IV Last administered on 05/10/16 20:12; Start 05/10/16 at 19:45; Stop 05/10/16 at 20:44; Status DC Ondansetron HCl (Zofran) 4 mg 1X ONCE IV Last administered on 05/10/16t 20:13 ; Start 05/10/16 at 19:45; Stop 05/10/16 at 19:46; Status DC Ondansetron HCl (Zofran) 4 mg PRN Q8HRS PRN IV NAUSEA/VOMITING; Start 05/10/16 at 21:00; Stop 05/11/16 at 20:59; Status DC Morphine Sulfate 2 mg PRN Q2HR PRN IV PAIN; Start 05/10/16 at 21:00; Stop 05/11 at 20:59; Status DC Acetaminophen (Tylenol) 650 mg PRN Q4HRS PRN PO FEVER; Start 05/10/16 at 21:00 ; Stop 05/11/16 at 20:59; Status DC Atorvastatin Calcium (Lipitor) 10 mg HS PO Last administered on 05/12/16 20:44 ; Start 05/10/16 at 22:00 Divalproex Sodium (Depakote Er) 250 mg BID PO Last administered on 05/13/16 09 :00; Start 05/10/16 at 22:00 Donepezil HCl (Aricept) 10 mg QHS PO Last administered on 05/12/16 20:44; Start 05/10/16 at 22:00 Duloxetine HCl (Cymbalta) 30 mg HS PO Last administered on 05/12/16 20:44; Start 05/10/16 at 22:00 Lisinopril (Prinivil) 10 mg DAILY PO Last administered on 05/13/16 09:00; Start 05/11/16 at 09:00 Lorazepam (Ativan) 1 mg DAILY PO Last administered on 05/13/16 08:08; Start at 09:00 Memantine (Namenda) 10 mg DAILY PO Last administered on 05/13/16 09:00; Start 05/11/16 at 09:00 Trazodone HCl (Desyrel) 50 mg QHS PO Last administered on 05/12/16 20:44; Start 05/10/16 at 22:00 Non-Formulary Medication 1 tab QHS PO ; Start 05/11/16 at 21:00; Status UNV Lorazepam (Ativan) 1 mg 1X ONCE PO Last administered on 05/11/16 15:19; Start 05/11/16 at 15:15; Stop 05/11/16 at 15:16; Status DC Lorazepam (Ativan) 1 mg PRN BID PRN PO ANXIETY / AGITATION Last administered on 05/12/16 17:05; Start 05/11/16 at 15:15 Lorazepam (Ativan) 2 mg 1X ONCE IV Last administered on 05/13/16 10:15; Start 05/13/16 at 10:15; Stop 05/13/16 at 10:16; Status DC Active Scripts Active Reported Lorazepam 1 Mg Tablet 1 Mg PO DAILY Lisinopril 10 Mg Tablet 1 Tab PO DAILY Namenda (Memantine Hcl) 10 Mg Tablet 10 Mg PO DAILY Atorvastatin Calcium 10 Mg Tablet 10 Mg PO HS Aricept (Donepezil Hcl) 10 Mg Tablet 2.5 Tab PO QHS Trazodone Hcl 50 Mg Tablet 1.5 Tab PO QHS Melatonin 3 Mg Tablet 1 Tab PO QHS Depakote Er (Divalproex Sodium) 250 Mg Tab.er.24h 0.5 Tab PO BID Cymbalta (Duloxetine Hcl) 30 Mg Capsule.dr 1 Cap PO HS [omerprazole] 20 Mg PO PRN Vitals/I & O Vital Sign - Last 24 Hours 05/12/16 05/12/16 05/12/16 05/12/16 15:41 19:00 20:43 23:00 Temp 97.7 98.1 98.7 97.7 98.1 98.7 Pulse 87 69 72 Resp 18 20 18 B/P 125/92 125/89 114/82 Pulse Ox 98 96 95 O2 Delivery Room Air Room Air Room Air Room Air 05/13/16 05/13/16 05/13/16 03:14 07:00 09:00 Temp 97.5 97.7 97.5 97.7 Pulse 69 77 77 Resp 18 20 B/P 130/86 132/75 132/75 Pulse Ox 97 96 O2 Delivery Room Air Room Air Images EEG showed background slowing but no epileptic activity. The background slowing is consistent with his dementia history FABRICIO GOMEZ MD May 13, 2016 10:19
== END 2016-05-13 12:30 | disposition short-term general hospital (02) | DRG 312 ==
LOC: ER 18:33 → 5 NORTH 20:54
PROVIDERS: ADMIT Internal Medicine; ATTEND Internal Medicine
DX: R55 Syncope and collapse (principal); E44.1 Mild protein-calorie malnutrition; G20 Parkinson's disease; F41.9 Anxiety disorder, unspecified; E78.00 Pure hypercholesterolemia, unspecified; E78.5 Hyperlipidemia, unspecified; F02.80 Dementia in other diseases classified elsewhere, unspecified severity, without behavioral disturbance, psychotic disturbance, mood disturbance, and anxiety; F32.9 Major depressive disorder, single episode, unspecified; G31.83 Neurocognitive disorder with Lewy bodies; I10 Essential (primary) hypertension; K21.9 Gastro-esophageal reflux disease without esophagitis; Z82.49 Family history of ischemic heart disease and other diseases of the circulatory system; Z87.440 Personal history of urinary (tract) infections; Z68.21 Body mass index [BMI] 21.0-21.9, adult
CPT/HCPCS: 36415; 71020; 80048; 80053; 81001; 83690; 84484; 85027; 87086; 87641; 93005; 93306; 93660; 95816; 96361; 96374; J2060; J2405; J7030; 97003-GO; 99285-25

== ENCOUNTER 2016-10-16 20:35 | Emergency (ER) | payer MEDICARE, OTHER ==
[~2016-10-16] VITALS: Ht 172.7 cm; Wt 72.1 kg
[~2016-10-16 20:35] MED LIST changes: -DONE10TA34 PO; +DONE10TA61 PO; -MELA3TAB PO; +MELA3TAB2 PO
[2016-10-16 21:01] LABS: BASO # 0.1 x10^3/uL (0.0-0.2); BASO % 1 % (0-3); EOS % 1 % (0-3); HEMATOCRIT 48.2 % (39.0-53.0); HEMOGLOBIN 15.9 g/dL (13.0-17.5); LYMPH % 44 % (24-48); MEAN CORPUSCULAR HEMOGLOBIN 32 pg (25-35); MEAN CORPUSCULAR HGB CONC 33 g/dL (31-37); MEAN CORPUSCULAR VOLUME 98 fL (79-100); MONO % 8 % (0-9); NEUT % 46 % (31-73); PLATELET COUNT 221 x10^3/uL (140-400); RED CELL DISTRIBUTION WIDTH 13.9 % (11.5-14.5); WHITE BLOOD COUNT 9.2 x10^3/uL (4.0-11.0)
[2016-10-16 21:12] LABS: INR 1.1 (0.8-1.1); PROTHROMBIN TIME PATIENT 13.5 SEC (11.7-14.0)
[2016-10-16 21:20] LABS: CALCIUM 8.9 mg/dL (8.5-10.1); CREATININE 1.3 mg/dL (0.7-1.3); GFR 54.6; POTASSIUM 4.1 mmol/L (3.5-5.1)
[2016-10-16 21:35] LABS: ALBUMIN 3.3 g/dL (3.4-5.0); ALBUMIN/GLOBULIN RATIO 0.9 (1.0-1.7); TOTAL BILIRUBIN 0.6 mg/dL (0.2-1.0); TOTAL PROTEIN 6.8 g/dL (6.4-8.2)
--- NOTE | 2016-10-16 21:35 | RAD ---
CT HEAD WO CONTRAST dated 10/16/2016 8:40 PM Indication: Seizure, not verbally responsive, poor historian, seizure Comparison: 04/16/2016 Technique: Contiguous axial imaging of the head was performed from skull base to vertex. No contrast administered. One or more of the following individualized dose reduction techniques were utilized for this examination: 1. Automated exposure control 2. Adjustment of the mA and/or kV according to patient size 3. Use of iterative reconstruction technique Findings: Ventricles and sulci are moderately prominent for age. No midline shift or mass effect. Mild/moderate patchy low density in the deep/subcortical periventricular white matter, unchanged. No hemorrhage or extra-axial collection. Posterior fossa and brainstem unremarkable. Visualized paranasal sinuses and mastoid air cells are clear. No acute calvarial abnormality. IMPRESSION: 1. No evidence of acute intracranial hemorrhage or mass. 2. Moderate chronic small vessel ischemic changes and atrophy, similar to prior study. Electronically signed by: Juan Pablo Farrell MD (10/16/2016 9:32 PM)
[2016-10-16 21:50] LABS: BILIRUBIN,URINE SMALL (NEG); GLUCOSE,URINE NEGATIVE (NEG); NITRITE,URINE NEGATIVE (NEG); PROTEIN,URINE 30 mg/dL (NEG-TRACE)
[2016-10-16 21:56] LABS: BARBITURATES NEG (NEG); BENZODIAZEPINES NEG (NEG); CANNABINOIDS NEG (NEG); COCAINE NEG (NEG); METHADONE NEG (NEG); OPIATES NEG (NEG); PHENCYCLIDINE NEG (NEG)
[2016-10-16 21:57] LABS: BACTERIA,URINE 0 /HPF (0-FEW); SQUAMOUS EPITHELIAL CELL,UR FEW /LPF
[2016-10-16] MEDS ORDERED: IV NORMAL SALINE 1000ML BAG 1,000 ML IV ONE (22:30)
[2016-10-16 23:55] VITALS: BP 140/86
--- NOTE | 2016-10-17 00:17 | ED.ADGEN ---
Past Medical History Past Medical History: Anxiety, Dementia, Depression, High Cholesterol, Hypertension Additional Past Medical Histor: Lewy body dementia, PARKINSONS Past Surgical History: Other Additional Past Surgical Histo: L. FOOT Alcohol Use: None Drug Use: None Adult General Chief Complaint Chief Complaint: SEIZURE HPI HPI Patient is a 71 year old man, history of dementia, depression, hypertension, with reported history of seizure disorder is not listed among his diagnoses and his longterm paperwork. Patient presents via EMS with report of 5 discrete episodes of seizure activity lasting about 30 seconds each per longterm report. Patient did receive a dose of Ativan at the nursing facility after his last episode, per EMS report upon arrival, he is noted to be hypertensive initially, 70s over 40s, and diaphoretic, however repeat blood pressure revealed blood pressure of 110s and then 120s over 60s and 80s. Upon arousing the emergency department, patient is awake, alert, at his baseline mental status per report, denying complaints and interacting with staff and following all commands. Per report, there is no history of fever, of injury, of medication for seizure disorder, or change medication or missed medication doses. No recent travel or procedures. Edition report received from nursing facility states the patient has been evaluated by neurology previously for seizure disorder, but is not currently on medication as stated. Review of Systems Review of Systems Constitutional: Denies fever or chills. [] Eyes: Denies change in visual acuity. [] HENT: Denies nasal congestion or sore throat. [] Respiratory: Denies cough or shortness of breath. [] Cardiovascular: Denies chest pain or edema. [] GI: Denies abdominal pain, nausea, vomiting, bloody stools or diarrhea. [] : Denies dysuria. [] Musculoskeletal: Denies back pain or joint pain. [] Integument: Denies rash. [] Neurologic: Denies headache, focal weakness or sensory changes. [] Endocrine: Denies polyuria or polydipsia. [] Lymphatic: Denies swollen glands. [] Psychiatric: Denies depression or anxiety. [] Patient denies all complaints, but isn't limited historian due to underlying dementia. Current Medications Current Medications Current Medications Medications (Trade) Dose Ordered Sig/Latosha Start Time Stop Time Status Last Admin Dose Admin Sodium Chloride 1,000 ml @ 1,000 mls/hr 1X ONCE 10/16/16 22:30 10/16/16 23:29 DC 10/16/16 22:15 1,000 MLS/HR Allergies Allergies Allergies Coded Allergies Type Severity Reaction Last Updated Verified No Known Drug Allergies 01/14/16 No Physical Exam Physical Exam Constitutional: Well developed, well nourished, no acute distress, non-toxic appearance. [] HENT: Normocephalic, atraumatic, bilateral external ears normal, oropharynx moist, no oral exudates, nose normal. [] Eyes: PERRLA, EOMI, conjunctiva normal, no discharge. [] Neck: Normal range of motion, no tenderness, supple, no stridor. [] Cardiovascular:Heart rate regular rhythm, no murmur , S1, S2, rubs or gallops. [ ] Lungs & Thorax: Bilateral breath sounds clear to auscultation, no wheezing, rhonchi, rales. No chest wall crepitus or tenderness. [] Abdomen: Bowel sounds normal, soft, no tenderness, no masses, no pulsatile masses. [] Skin: Warm, dry, no erythema, no rash. [] Back: No tenderness, no CVA tenderness. [] Extremities: No tenderness, no cyanosis, no clubbing, ROM intact, no edema. [] Neurologic: Alert and oriented X 1, normal motor function, normal sensory function, no focal deficits noted. [] Psychologic: Affect normal, judgement normal, mood normal. [] Current Patient Data Vital Signs Vital Signs Date Time Temp Pulse Resp B/P (MAP) Pulse Ox O2 Delivery O2 Flow Rate FiO2 10/16/16 23:55 64 140/86 (104) 94 Room Air 10/16/16 20:40 98.8 16 98.8 Lab Values Laboratory Tests Test 10/16/16 20:50 10/16/16 21:40 10/16/16 22:55 White Blood Count 9.2 x10^3/uL (4.0-11.0) Red Blood Count 4.90 x10^6/uL (4.30-5.70) Hemoglobin 15.9 g/dL (13.0-17.5) Hematocrit 48.2 % (39.0-53.0) Mean Corpuscular Volume 98 fL (79-100) Mean Corpuscular Hemoglobin 32 pg (25-35) Mean Corpuscular Hemoglobin Concent 33 g/dL (31-37) Red Cell Distribution Width 13.9 % (11.5-14.5) Platelet Count 221 x10^3/uL (140-400) Neutrophils (%) (Auto) 46 % (31-73) Lymphocytes (%) (Auto) 44 % (24-48) Monocytes (%) (Auto) 8 % (0-9) Eosinophils (%) (Auto) 1 % (0-3) Basophils (%) (Auto) 1 % (0-3) Neutrophils # (Auto) 4.3 x10^3uL (1.8-7.7) Lymphocytes # (Auto) 4.0 x10^3/uL (1.0-4.8) Monocytes # (Auto) 0.7 x10^3/uL (0.0-1.1) Eosinophils # (Auto) 0.1 x10^3/uL (0.0-0.7) Basophils # (Auto) 0.1 x10^3/uL (0.0-0.2) Prothrombin Time 13.5 SEC (11.7-14.0) Prothrombin Time INR 1.1 (0.8-1.1) PTT 24 SEC (24-38) Sodium Level 145 mmol/L (136-145) Potassium Level 4.1 mmol/L (3.5-5.1) Chloride Level 108 mmol/L (98-107) H Carbon Dioxide Level 30 mmol/L (21-32) Anion Gap 7 (6-14) Blood Urea Nitrogen 24 mg/dL (8-26) Creatinine 1.3 mg/dL (0.7-1.3) Estimated GFR (Cockcroft-Gault) 54.6 BUN/Creatinine Ratio 18 (6-20) Glucose Level 112 mg/dL (70-99) H Lactic Acid Level 2.9 mmol/L (0.4-2.0) H 2.3 mmol/L (0.4-2.0) H Calcium Level 8.9 mg/dL (8.5-10.1) Total Bilirubin 0.6 mg/dL (0.2-1.0) Aspartate Amino Transferase (AST) 18 U/L (15-37) Alanine Aminotransferase (ALT) 23 U/L (16-63) Alkaline Phosphatase 59 U/L (46-116) Troponin I Quantitative < 0.017 ng/mL (0.000-0.055) Total Protein 6.8 g/dL (6.4-8.2) Albumin 3.3 g/dL (3.4-5.0) L Albumin/Globulin Ratio 0.9 (1.0-1.7) L Urine Collection Type Unknown Urine Color Yellow Urine Clarity Clear Urine pH 6.0 Urine Specific [place] 1.025 Urine Protein 30 mg/dL (NEG-TRACE) Urine Glucose (UA) Negative mg/dL (NEG) Urine Ketones (Stick) Negative mg/dL (NEG) Urine Blood Small (NEG) Urine Nitrite Negative (NEG) Urine Bilirubin Small (NEG) Urine Urobilinogen Dipstick 1.0 mg/dL (0.2 mg/dL) Urine Leukocyte Esterase Small (NEG) Urine RBC 6-10 /HPF (0-2) Urine WBC 5-10 /HPF (0-4) Urine Squamous Epithelial Cells Few /LPF Urine Amorphous Sediment Present /HPF Urine Bacteria 0 /HPF (0-FEW) Urine Hyaline Casts Few /HPF Urine Mucus Marked /LPF Urine Opiates Screen Neg (NEG) Urine Methadone Screen Neg (NEG) Urine Barbiturates Neg (NEG) Urine Phencyclidine Screen Neg (NEG) Urine Amphetamine/Methamphetamine Neg (NEG) Urine Benzodiazepines Screen Neg (NEG) Urine Cocaine Screen Neg (NEG) Urine Cannabinoids Screen Neg (NEG) Urine Ethyl Alcohol Neg (NEG) Laboratory Tests 10/16/16 20:50 Laboratory Tests 10/16/16 20:50 EKG EKG EC: Sinus rhythm, heart rate 59 beats minute, patient with moderate baseline artifact noted, QTc of 426, MS 222, QRS of 96, no ST elevations or depressions, abnormal ECG, does not meet STEMI criteria. As interpreted by me. [ ] Radiology/Procedures Radiology/Procedures [][facility] [address] [facility] [place] [address] IMAGING REPORT Signed PATIENT: EFRAÍN ORTIZ ACCOUNT: [id number] : 1945 LOCATION: ER AGE: 71 SEX: M EXAM STATUS: REG ER ORD. PHYSICIAN: MURALI OCONNOR DO REASON: SZ PROCEDURE: CT HEAD WO CONTRAST CT HEAD WO CONTRAST dated 10/16/2016 8:40 PM Indication: Seizure, not verbally responsive, poor historian, seizure Comparison: 04/16/2016 Technique: Contiguous axial imaging of the head was performed from skull base to vertex. No contrast administered. One or more of the following individualized dose reduction techniques were utilized for this examination: 1. Automated exposure control 2. Adjustment of the mA and/or kV according to patient size 3. Use of iterative reconstruction technique Findings: Ventricles and sulci are moderately prominent for age. No midline shift or mass effect. Mild/moderate patchy low density in the deep/subcortical periventricular white matter, unchanged. No hemorrhage or extra-axial collection. Posterior fossa and brainstem unremarkable. Visualized paranasal sinuses and mastoid air cells are clear. No acute calvarial abnormality. IMPRESSION: 1. No evidence of acute intracranial hemorrhage or mass. 2. Moderate chronic small vessel ischemic changes and atrophy, similar to prior study. Electronically signed by: Juan Pablo Farrell MD (10/16/2016 9:32 PM) DICTATED and SIGNED BY: JUAN PABLO FARRELL MD DATE: 10/16/162129 CC: FROILAN CASTILLO MD; MURALI OCONNOR DO ~ Chest x-ray: One view: Normal cardiopulmonary silhouette, no infiltrates, no effusions, no pneumothorax, no soft tissue or bony abnormalities identified. As interpreted by me. Course & Med Decision Making Course & Med Decision Making Pertinent Labs and Imaging studies reviewed. (See chart for details) Due to initial unclear picture regarding patient's potential history of seizure disorder, with multiple seizures today, episode of hypotension which is now resolved, CT imaging of the head obtained along with chest x-ray, and laboratory studies. Initial lactic elevated at 2.9, patient received IV fluids in the ED, repeat lactic approximately 2 hours later was 2.3. Patient's blood pressure remained stable, attentive, heart rate in the 50s and 60s, oxygen saturation in the mid upper 90s, patient resting comfortably without recurrent seizure symptoms. Patient's urinalysis and other laboratory studies are unremarkable, he is resting comfortably with stable vital signs in the emergency department. I did discuss findings as above with Kathy Milan, nurse practitioner on-call for the patient's primary care provider. After discussing history and report from nursing facility stating the patient's seizures today are consistent with his previous episodes which been evaluated by neurology in the past, also discussed patient's limited episode of hypotension which then resolved, and patient's mildly elevated lactic, which would be consistent with seizure activity, at this time as the patient has no other concerning findings, symptoms resolved for single dose of Ativan, she requests the patient be transferred back to the nursing facility, where she or one of her colleagues will be able to evaluate him this morning, and determine if additional evaluation and neurology consultation will be required. Nurse Clemens did discuss these findings and plan with Caro, the patient's nurse at the nursing facility , transport arranged for the patient, remained stable and comfortable during his ED course awaiting EMS. Dragon Disclaimer Dragon Disclaimer This electronic medical record was generated, in whole or in part, using a voice recognition dictation system. Departure Impression: Primary Impression: Seizure Disposition: 01 HOME, SELF-CARE Condition: IMPROVED MURALI OCONNOR DO Oct 17, 2016 00:16
--- NOTE | 2016-10-17 07:18 | EKG ---
[facility] [address] [place] [address] Test Date: 2016-10-16 Test Time: 20:49:24 Pat Name: EFRAÍN ORTIZ Department: Room: Gender: M Financial Professional: : 1945 Requested By: MURALI OCONNOR Order Number: [id number] Reading MD: Pool Hidalgo Measurements Intervals [place] Rate: 59 P: 38 VA: 222 QRS: 19 QRSD: 96 T: 59 QT: 426 QTc: 426 Interpretive Statements SINUS RHYTHM PROLONGED VA INTERVAL NON SPECIFIC T ABNORMALITY RI6.01 Unconfirmed report Compared to ECG 05/10/2016 19:52:29 First degree AV block now present T-wave abnormality now present Prolonged QT interval no longer present Electronically Signed On 10-18-2016 11:18:50 CDT by Pool Hidalgo
--- NOTE | 2016-10-17 08:19 | RAD ---
Indication change in mental status. Hypotension. A single view of the chest was obtained. Comparison is made to an examination May 10, 2016. The heart and pulmonary vessels appear normal. The lungs are clear. There is no pleural fluid or pneumothorax. There has not been a significant change in the appearance of the chest compared to the previous exam. IMPRESSION: No acute or focal process. No significant change
== END 2016-10-17 00:23 | disposition home or self-care (01) ==
LOC: ER 20:35
DX: R56.9 Unspecified convulsions (principal); E78.00 Pure hypercholesterolemia, unspecified; I10 Essential (primary) hypertension; G31.83 Neurocognitive disorder with Lewy bodies; F02.80 Dementia in other diseases classified elsewhere, unspecified severity, without behavioral disturbance, psychotic disturbance, mood disturbance, and anxiety; G20 Parkinson's disease; F41.9 Anxiety disorder, unspecified; F32.9 Major depressive disorder, single episode, unspecified
CPT/HCPCS: 36415; 70450; 71010; 80053; 80305; 80320; 81001; 83605; 84484; 85027; 85610; 85730; 87086; 93005; 96360; 99285; J7030; G0481